=== PATIENT | female | born 1970 | race Caucasian/White ===

== ENCOUNTER 2016-12-29 21:26 | Emergency (ER) | payer MEDICAID ==
--- NOTE | 2016-12-29 22:04 | ED Physician Chart ---
Chief Complaint/HPI - Patient Information Date Seen:: 12/29/16 Time Seen:: 21:39 Chief Complaint:: headache History of Present Illness:: THIS IS A 46 YEAR OLD FEMALE WITH A RECURRENT HEADACHE IN THE BACK OF THE HEAD THAT STARTED THREE DAYS AGO. SHE DENIES ANY HEAD TRAUMA OLD OR RECENT. SHE DENIES FEVER, COUGH AND SORE THROAT. SHE DENIES NAUSEA AND VOMITING. SHE STATES THAT SHE HAS HYPERTENSION BUT NOT TAKING MEDICATION FOR IT. SHE ALSO STATES THAT SHE HAS THYROID DISEASE. Allergies:: Allergies Allergy/AdvReac Type Severity Reaction Status Date / Time No Known Allergies Allergy Verified 12/29/16 21:40 Vitals:: Vital Signs - 8 hr 12/29/16 21:30 Temp 97.7 F HR 68 RR 18 BP 115/74 O2 Sat % 100 Historian:: Patient Review:: Nurse's Note Reviewed Review of Systems - Review of Systems General/Constitutional: No fever, No chills, No weight loss, No weakness, No diaphoresis, No edema, No loss of appetite Skin: No skin lesions, No rash, No bruising Head: Headache, No light-headedness Eyes: No loss of vision, No pain, No diplopia, Other (PHOTOPHOBIA) ENT: No earache, No nasal drainage, No sore throat, No tinnitus Neck: No neck pain, No swelling, No thyromegaly, No stiffness, No mass noted Cardio Vascular: No chest pain, No palpitations, No PND, No orthopnea, No edema Pulmonary: No SOB, No cough, No sputum, No wheezing GI: No nausea, No vomiting, No diarrhea, No pain, No melena, No hematochezia, No constipation, No hematemesis G/U: No dysuria, No frequency, No hematuria Musculoskeletal: No bone or joint pain, No back pain, No muscle pain Endocrine: No polyuria, No polydipsia Psychiatric: No prior psych history, No depression, No anxiety, No suicidal ideation Hematopoietic: No bruising, No lymphadenopathy Allergic/Immuno: No urticaria, No angioedema Neurological: No syncope, No focal symptoms, No weakness, No paresthesia, No headache, No seizure, No dizziness, No confusion, No vertigo Past Medical History - Past Medical History Obtainable: Yes Past Medical History: HTN, Asthma/COPD, Thyroid disorder Family History: None Social History: Non Smoker, No Alcohol, No Drug Use Surgical History: None Family Medical History - Family Member Mother History Unknown: Yes Ethnicity: Living Status: Still Living Hx Family Cancer: Yes Hx Family Hypertension: Yes Hx Family Diabetes: Yes Physical Exam - Physical Examination General/Constitutional: Awake, Well-developed, well-nourished, Alert, No distress, GCS 15, Non-toxic appearing, Ambulatory Head: Atraumatic Eyes: Lids, conjuctiva normal, PERRL, EOMI Skin: Nl inspection, No rash, No skin lesions, No ecchymosis, Well hydrated, No lymphadenopathy ENMT: External ears, nose nl, Nasal exam nl, Lips, teeth, gums nl Neck: Nontender, Full ROM w/o pain, No JVD, No nuchal rigidity, No bruit, No mass, No stridor Respiratory: Nl effort/Exclusion, Clear to Auscultation, No Wheeze/Rhonchi/Rales Cardio Vascular: RRR, No murmur, gallop, rubs, NL S1 S2 GI: No tenderness/rebounding/guarding, No organomegaly, No hernia, Normal BS's, Nondistended, No mass/bruits, No McBurney tenderness : No CVA tenderness Extremities: No tenderness or effusion, Full ROM, normal strength in all extremities, No edema, Normal digits & nails Neuro/Psych: Alert/oriented, DTR's symmetric, Normal sensory exam, Normal motor strength, Judgement/insight normal, Mood normal, Normal gait, No focal deficits Misc: normal gait, Normal back, No paraspinal tenderness Labs/Radiology/EKG Results - Lab Results Results: Laboratory Results - last 24 hr 12/29/16 12/29/16 12/29/16 21:55 21:55 21:56 WBC RBC Hgb Hct MCV MCH MCHC Differential RDW Plt Count MPV Neutrophils % Lymphocytes % Monocytes % Eosinophils % Basophils % PT 9.3 L INR 0.90 Sodium Potassium Chloride Carbon Dioxide Anion Gap BUN Creatinine Est GFR ( Amer) Est GFR (Non-Af Amer) BUN/Creatinine Ratio Glucose Calcium Total Bilirubin AST ALT Alkaline Phosphatase Troponin I Total Protein Albumin Globulin Albumin/Globulin Ratio Triglycerides Cholesterol LDL Cholesterol Direct HDL Cholesterol Urine Source CLEAN C Urine Color YELLOW Urine Clarity CLEAR Urine pH 6.0 Ur Specific [place] 1.020 Urine Protein NEGATIVE Urine Glucose (UA) NEGATIVE Urine Ketones NEGATIVE Urine Blood TRACE Urine Nitrate NEGATIVE Urine Bilirubin NEGATIVE Urine Urobilinogen 0.2 Ur Leukocyte Esterase NEGATIVE Urine RBC NONE SEEN Urine WBC NONE SEEN Ur Epithelial Cells NONE SEEN Urine Bacteria NONE SEEN Urine Test NEGATIVE 12/29/16 12/29/16 12/29/16 21:56 21:56 21:56 WBC 7.9 D RBC 4.09 Hgb 11.7 Hct 34.3 L MCV 83.8 MCH 28.6 MCHC Differential 34.1 RDW 14.6 Plt Count 188 MPV 10.0 Neutrophils % 50.3 Lymphocytes % 36.2 Monocytes % 7.7 Eosinophils % 4.7 Basophils % 1.1 PT INR Sodium 137 Potassium 3.8 Chloride 110 H Carbon Dioxide 22.7 Anion Gap 8.1 BUN 13 Creatinine 0.7 Est GFR ( Amer) > 60.0 Est GFR (Non-Af Amer) > 60.0 BUN/Creatinine Ratio 18.6 Glucose 107 H Calcium 8.7 Total Bilirubin 0.2 L AST 15 ALT 14 Alkaline Phosphatase 53 Troponin I Total Protein 6.4 Albumin 3.4 L Globulin 3.0 Albumin/Globulin Ratio 1.1 Triglycerides 180 H Cholesterol 183 LDL Cholesterol Direct 118 HDL Cholesterol 48 Urine Source Urine Color Urine Clarity Urine pH Ur Specific [place] Urine Protein Urine Glucose (UA) Urine Ketones Urine Blood Urine Nitrate Urine Bilirubin Urine Urobilinogen Ur Leukocyte Esterase Urine RBC Urine WBC Ur Epithelial Cells Urine Bacteria Urine Test 12/29/16 21:56 WBC RBC Hgb Hct MCV MCH MCHC Differential RDW Plt Count MPV Neutrophils % Lymphocytes % Monocytes % Eosinophils % Basophils % PT INR Sodium Potassium Chloride Carbon Dioxide Anion Gap BUN Creatinine Est GFR ( Amer) Est GFR (Non-Af Amer) BUN/Creatinine Ratio Glucose Calcium Total Bilirubin AST ALT Alkaline Phosphatase Troponin I < 0.01 L Total Protein Albumin Globulin Albumin/Globulin Ratio Triglycerides Cholesterol LDL Cholesterol Direct HDL Cholesterol Urine Source Urine Color Urine Clarity Urine pH Ur Specific [place] Urine Protein Urine Glucose (UA) Urine Ketones Urine Blood Urine Nitrate Urine Bilirubin Urine Urobilinogen Ur Leukocyte Esterase Urine RBC Urine WBC Ur Epithelial Cells Urine Bacteria Urine Test - Radiology Results Results: ct scan of the head = sinus wall mucosal thicken. - EKG Interpretations EKG Time:: 22:19 Rhythm: sinus [place]: right Rate: 67 ED Septic Shock - . Is Septic Shock (SBP<90, OR Lactate>4 mmol\L) present?: No - <6hrs of presentation: Vital Signs: Vital Signs - 8 hr 12/29/16 21:30 Temp 97.7 F HR 68 RR 18 BP 115/74 O2 Sat % 100 Reassessment (Disposition) - Reassessment Reassessment Condition:: Improved - Diagnosis Diagnosis:: SINUSITIS HEADACHE - Aftercare/Follow up Instructions Aftercare/Follow-Up Instructions:: Counseled pt regarding lab results/diagnosis & need follow up, Refer to Discharge Instructions, Counseled pt & family regarding lab results/diagnosis & need follow up - Patient Disposition Discharge/Transfer:: Home Condition at Disposition:: Improved ED Discharge Plan - Patient Disposition Admit/Discharge/Transfer: PT DISCHARGED HOME Condition at Disposition: Improved
[2016-12-29 22:19] LABS: % BASOPHILS 1.1 % (0.0-2.0); % EOSINOPHILS 4.7 % (0.0-5.0); % LYMPHOCYTES 36.2 % (20.0-50.0); % MONOCYTES 7.7 % (2.0-10.0); % NEUTROPHILS 50.3 % (40.0-80.0); HEMATOCRIT 34.3 % (35.0-45.0); HEMOGLOBIN 11.7 gm/dL (11.7-15.5); MEAN CELL VOLUME 83.8 fl (81-100); MEAN CORPUSCULAR HEMOGLOBIN 28.6 pg (27.0-31.0); MEAN CORPUSCULAR HGB CONC 34.1 pg (28.0-36.0); NEUTROPHILE ABSOLUTE 3.9 Th/cmm (1.8-8.0); PLATELET COUNT 188 Th/cmm (150-400); RED BLOOD COUNT 4.09 Mil/cmm (3.80-5.10); RED CELL DISTRIBUTION WIDTH 14.6 % (11.5-20.0)
[2016-12-29 22:24] LABS: WHITE BLOOD COUNT 7.9 Th/cmm (4.8-10.8)
[2016-12-29 22:31] LABS: INR 0.9 (0.5-1.4); PROTHROMBIN TIME (TEST) 9.3 SECONDS (9.5-11.5)
[2016-12-29 22:32] LABS: URINE BILIRUBIN NEGATIVE (NEGATIVE); URINE COLOR YELLOW; URINE GLUCOSE (UA) NEGATIVE (NEGATIVE)
[2016-12-29 22:33] LABS: URINE BLOOD TRACE (NEGATIVE); URINE KETONE NEGATIVE (NEGATIVE); URINE PROTEIN NEGATIVE (NEGATIVE); URINE UROBILINOGEN 0.2 E.U./dL (0.2 - 1.0)
[2016-12-29 22:33] LABS: ANION GAP 8.1 (7.0-16.0); BUN - UREA NITROGEN 13 mg/dL (7-25); BUN/CREATININE RATIO 18.6; CARBON DIOXIDE 22.7 mEq/L (21.0-31.0); CHLORIDE 110 mEq/L (98-107); CREATININE - SERUM 0.7 mg/dL (0.6-1.2); GLUCOSE 107 mg/dL (70-105); POTASSIUM SERUM 3.8 mEq/L (3.5-5.1); SODIUM SERUM 137 mEq/L (136-145)
[2016-12-29 22:34] LABS: URINE BACTERIA NONE SEEN /hpf (NONE SEEN); URINE EPITHELIAL CELLS NONE SEEN /lpf (FEW); URINE RBC NONE SEEN /hpf (0-5); URINE WBC NONE SEEN /hpf (0-5)
[2016-12-29 22:34] LABS: ALB/GLOB RATIO 1.1 (1.0-1.8); ALKALINE PHOSPHATASE 53 U/L (34-104); BILIRUBIN,TOTAL 0.2 mg/dL (0.3-1.0); CALCIUM SERUM 8.7 mg/dL (8.6-10.3); CHOLESTEROL 183 mg/dL (<200); SGOT 15 U/L (13-39); SGPT/ALT 14 U/L (7-52); TRIGLYCERIDES 180 mg/dL (<150)
--- NOTE | 2016-12-30 11:23 | Diagnostic Imaging Report ---
Head CT without intravenous contrast Indication: pain Comparison: None Technique: Axial images were obtained from the vertex to the skull base without IV contrast. Coronal reconstructions were made. Total DLP: 588, [id number] FINDINGS: Images of the brain obtained without contrast demonstrate no evidence of an acute hemorrhage. The ventricles and basal cisterns are patent. No mass effect or midline shift. There is a 3 mm calcification the right occipital lobe possibly due to old inflammatory process. No evidence of a skull fracture or focal soft tissue swelling. The visualized paranasal sinuses are clear. IMPRESSION: No acute intracranial abnormality.
== END 2016-12-29 23:30 | disposition home or self-care (01) ==
LOC: ER 21:26
DX: J32.9 Chronic sinusitis, unspecified (principal); R51 Headache; I10 Essential (primary) hypertension; J44.9 Chronic obstructive pulmonary disease, unspecified; J45.909 Unspecified asthma, uncomplicated; E07.9 Disorder of thyroid, unspecified
CPT/HCPCS: 99285; 96372 ×3; 93005; 70450; 84484; 36415; 84443; 85025; 85610; 81001; 81025; 80053; 80061; 87040 ×2; J1885; J0696; J2930; J2060

== ENCOUNTER 2017-02-25 08:49 | Inpatient (IN) | payer MEDICAID ==
[2017-02-25] MEDS ORDERED: Aspirin 81mg Chewable Tab PO STA (09:01)
[2017-02-25] MEDS ORDERED: Aspirin 81mg Chewable Tab ONE (09:02)
--- NOTE | 2017-02-25 09:07 | ED Physician Chart ---
Chief Complaint/HPI - Patient Information Date Seen:: 02/25/17 Time Seen:: 09:02 Chief Complaint:: cp History of Present Illness:: 1 week of on/off chest pain w left arm/leg numbness. mod pain now. no meds taken/tried today. central left chest pain which comes and goes. feels sob and has to rest now before climbing stairs (diaz+) no leg edema. no n/v. nonsmoker. pt has been untreated for her chronic med conditions of hypothyroid, high chol and dm for the past year since no pmd at present. she thinks she may have had a heart attack about 5 yrs ago there was a episode where she was syncopal ...then refused ems transport to hospital when she awoke so no def dx of mi was made...unclear by hx but sounds like only a vasovagal syncope. pt mentions weight loss 10 lbs in last yr unintentionally. Allergies:: Allergies Allergy/AdvReac Type Severity Reaction Status Date / Time No Known Allergies Allergy Verified 12/29/16 21:40 Historian:: Patient, Family Member (dtr) Review of Systems - Review of Systems General/Constitutional: No fever, No chills, No weight loss, No weakness, No diaphoresis, No edema, No loss of appetite Skin: No skin lesions, No rash, No bruising Head: No headache, No light-headedness Eyes: No loss of vision, No pain, No diplopia ENT: No earache, No nasal drainage, No sore throat, No tinnitus Neck: No neck pain, No swelling, No thyromegaly, No stiffness, No mass noted Cardio Vascular: Chest pain, No palpitations, No PND, No orthopnea, No edema Pulmonary: No SOB, No cough, No sputum, No wheezing GI: No nausea, No vomiting, No diarrhea, No pain, No melena, No hematochezia, No constipation, No hematemesis G/U: No dysuria, No frequency, No hematuria Musculoskeletal: No bone or joint pain, No back pain, No muscle pain Endocrine: No polyuria, No polydipsia Psychiatric: No prior psych history, No depression, No anxiety, No suicidal ideation Hematopoietic: No bruising, No lymphadenopathy Allergic/Immuno: No urticaria, No angioedema Neurological: No syncope, No focal symptoms, No weakness, No paresthesia, No headache, No seizure, No dizziness, No confusion, No vertigo Past Medical History - Past Medical History Past Medical History: DM, Dyslipidemia, Thyroid disorder Social History: Non Smoker Medication: None Family Medical History - Family Member Mother History Unknown: Yes Ethnicity: Living Status: Still Living Hx Family Cancer: Yes Hx Family Hypertension: Yes Hx Family Diabetes: Yes Physical Exam - Physical Examination General/Constitutional: Awake, Well-developed, well-nourished, Alert, No distress, GCS 15, Non-toxic appearing, Ambulatory Other Gen/Cons comments:: mod obese. anxious. no dyspnea. no edema. Head: Atraumatic Eyes: Lids, conjuctiva normal, PERRL, EOMI Skin: Nl inspection, No rash, No skin lesions, No ecchymosis, Well hydrated, No lymphadenopathy Other Skin comments:: mult skin tags around neck ENMT: External ears, nose nl, Nasal exam nl, Lips, teeth, gums nl Neck: Nontender, Full ROM w/o pain, No JVD, No nuchal rigidity, No bruit, No mass, No stridor Other Neck comments:: mod thyromegally Respiratory: Nl effort/Exclusion, Clear to Auscultation, No Wheeze/Rhonchi/Rales Cardio Vascular: RRR, No murmur, gallop, rubs, NL S1 S2 GI: No tenderness/rebounding/guarding, No organomegaly, No hernia, Normal BS's, Nondistended, No mass/bruits, No McBurney tenderness : No CVA tenderness Extremities: No tenderness or effusion, Full ROM, normal strength in all extremities, No edema, Normal digits & nails Other Extremities comments:: no leg tndrness. no waldemar sx. Neuro/Psych: Alert/oriented, DTR's symmetric, Normal sensory exam, Normal motor strength, Judgement/insight normal, Mood normal, Normal gait, No focal deficits Misc: normal gait, Normal back, No paraspinal tenderness Labs/Radiology/EKG Results - Lab Results Results: Laboratory Tests 02/25/17 02/25/17 02/25/17 09:19 09:19 09:19 WBC 7.1 RBC 4.07 Hgb 11.3 L Hct 33.8 L MCV 83.1 MCH 27.8 MCHC Differential 33.4 RDW 15.6 Plt Count 192 MPV 9.8 Neutrophils % 52.2 Lymphocytes % 39.7 Monocytes % 5.4 Eosinophils % 2.7 Basophils % 0.0 PT 9.9 INR 0.95 Sodium Potassium Chloride Carbon Dioxide Anion Gap BUN Creatinine Est GFR ( Amer) Est GFR (Non-Af Amer) BUN/Creatinine Ratio Glucose Calcium Total Bilirubin AST ALT Alkaline Phosphatase Creatine Kinase 205 Troponin I B-Natriuretic Peptide Total Protein Albumin Globulin Albumin/Globulin Ratio Triglycerides 98 Cholesterol 226 H LDL Cholesterol Direct 144 HDL Cholesterol 60 Serum , Qual 02/25/17 02/25/17 02/25/17 09:19 09:19 09:19 WBC RBC Hgb Hct MCV MCH MCHC Differential RDW Plt Count MPV Neutrophils % Lymphocytes % Monocytes % Eosinophils % Basophils % PT INR Sodium 138 Potassium 3.5 Chloride 109 H Carbon Dioxide 25.7 Anion Gap 6.8 L BUN 8 Creatinine 0.7 Est GFR ( Amer) > 60.0 Est GFR (Non-Af Amer) > 60.0 BUN/Creatinine Ratio 11.4 Glucose 84 Calcium 9.0 Total Bilirubin 0.3 AST 16 ALT 12 Alkaline Phosphatase 48 Creatine Kinase Troponin I < 0.01 L B-Natriuretic Peptide 7.1 Total Protein 6.6 Albumin 3.7 Globulin 2.9 Albumin/Globulin Ratio 1.3 Triglycerides Cholesterol LDL Cholesterol Direct HDL Cholesterol Serum , Qual NEGATIVE - Radiology Results Results: cxr nad, rt med base ? infiltrate - EKG Interpretations EKG Time:: 08:50 Rate & Rhythm: nsr 73 [place]: 19 Intervals: [id number] Comments:: nrml ecg..no ischemia ED Septic Shock - . Is Septic Shock (SBP<90, OR Lactate>4 mmol\L) present?: No Reassessment (Disposition) - Reassessment Reassessment:: 9;25a pt says pain has decreased to mild after asa and ntg case dw dr billings...will admit 10;29a Reassessment Condition:: Improved - Diagnosis Diagnosis:: 1 chest pain - r/o unstable angina 2 rt base lung infiltrate of uncertain etiology 3 untreated hypothyroid 4 untreated high cholesterol - Patient Disposition Admitted to:: Telemetry Condition at Disposition:: Improved
[2017-02-25 09:31] LABS: % EOSINOPHILS 2.7 % (0.0-5.0); % LYMPHOCYTES 39.7 % (20.0-50.0); % MONOCYTES 5.4 % (2.0-10.0); % NEUTROPHILS 52.2 % (40.0-80.0); HEMATOCRIT 33.8 % (35.0-45.0); HEMOGLOBIN 11.3 gm/dL (11.7-15.5); MEAN CELL VOLUME 83.1 fl (81-100); MEAN CORPUSCULAR HEMOGLOBIN 27.8 pg (27.0-31.0); MEAN CORPUSCULAR HGB CONC 33.4 pg (28.0-36.0); MEAN PLATELET VOLUME 9.8 fl; NEUTROPHILE ABSOLUTE 3.7 Th/cmm (1.8-8.0); PLATELET COUNT 192 Th/cmm (150-400); RED BLOOD COUNT 4.07 Mil/cmm (3.80-5.10); RED CELL DISTRIBUTION WIDTH 15.6 % (11.5-20.0); WHITE BLOOD COUNT 7.1 Th/cmm (4.8-10.8)
[2017-02-25 09:39] LABS: INR 0.95 (0.5-1.4); PROTHROMBIN TIME (TEST) 9.9 SECONDS (9.5-11.5)
[2017-02-25 09:48] LABS: TROP I < 0.01 ng/mL (0.01-0.05)
[2017-02-25 09:51] LABS: ALB/GLOB RATIO 1.3 (1.0-1.8); ALKALINE PHOSPHATASE 48 U/L (34-104); ANION GAP 6.8 (7.0-16.0); BILIRUBIN,TOTAL 0.3 mg/dL (0.3-1.0); BUN - UREA NITROGEN 8 mg/dL (7-25); BUN/CREATININE RATIO 11.4; CARBON DIOXIDE 25.7 mEq/L (21.0-31.0); CHLORIDE 109 mEq/L (98-107); CREATININE - SERUM 0.7 mg/dL (0.6-1.2); GLUCOSE 84 mg/dL (70-105); POTASSIUM SERUM 3.5 mEq/L (3.5-5.1); SGOT 16 U/L (13-39); SGPT/ALT 12 U/L (7-52); SODIUM SERUM 138 mEq/L (136-145)
[2017-02-25 09:52] LABS: CHOLESTEROL 226 mg/dL (<200); TRIGLYCERIDES 98 mg/dL (<150)
[2017-02-25 09:53] LABS: BNP 7.1 pg/mL (5.0-100.0)
--- NOTE | 2017-02-25 10:07 | Diagnostic Imaging Report ---
CHEST X-RAY: AP view INDICATION: Chest pain COMPARISON: Chest x-ray 10/25/2016 FINDINGS: Right medial basal density is noted possibly infiltrate. No pleural effusions. Heart size normal. Osseous structures are intact. IMPRESSION: Right medial basal density possibly representing infiltrate. Other etiologies such as pulmonary nodule cannot be excluded. Recommend follow-up with CT of the chest, preferably with IV contrast.
--- NOTE | 2017-02-25 11:08 | Admit Criteria Form ---
Admit Criteria Forms - Admit Criteria Diagnosis: TELEMETRY CARE Telemetry Admission Guidelines (Place 'X' for any and all applicable criteria): Admission to telemetry [A] may be indicated for ANY ONE of the following(1)(2)(3 )(4)(5): [X ]I. Cardiac disease, including ANY ONE of the following (9)(10)(11)(12)( 13): [ ]a) Postacute NE [ ]b) Low-risk patients with ST-segment elevation NE who have undergone successful percutaneous coronary intervention [X ]c) Unstable angina [ ]d) Suspected NE (until it is ruled out) [ ]e) Post cardiac surgery (first 48 to 72 hours unless complications occur) [ ]f) Acute arrhythmias (including significant tachycardia or bradycardia) [B] [ ]g) Firing of an implantable cardioverter defibrillator [C] [ ]h) Suspected pacemaker or implantable cardioverter defibrillator malfunction (10) [ ]i) New administration or adjustment of an antiarrhythmic drug [D ] [ ]j) Child admitted for acute congestive heart failure [ ]j) Long QT syndrome [ ]k) Advanced heart block (eg, second-degree Mobitz type II, third- degree heart block) [ ]l) Acute myocarditis or pericarditis [ ]m) Short-term (ambulatory or inpatient) monitoring after a cardiac procedure as indicated by ANY ONE of the following [E]: [ ]i) Electrophysiologic studies [ ]ii) Percutaneous coronary intervention with stent placement [ ]iii) Pacemaker placement with cardiac conduction defect [ ]iv) Implantable cardiac defibrillator placement [ ]II. Drug overdose or poisoning with substance that causes arrhythmias or QT prolongation (eg, phenothiazines, sympathomimetic agents, cyclic antidepressants, digitalis, antiarrhythmic drugs)(15) [ ]III. Short-term (ambulatory or inpatient) monitoring after therapeutic or diagnostic procedure requiring conscious sedation or anesthesia (eg, endoscopy, elective cardioversion) [ ]IV. Acute cerebrovascular even[F](18) [ ]V. Massive blood transfusion (eg, at least 10 units of packed red blood cells in 24 hours) [ ]. Variceal bleeding after endoscopy, sclerotherapy, or IV vasopressin [ ]VII. Uncorrected electrolyte abnormalities associated with an increased risk of dangerous arrhythmia [G]; examples include [ ]a) Hyperkalemia with attributable ECG changes [ ]b) Potassium greater than 6.5 mmol/L (mEq/L) in a patient without history of chronic renal disease [ ]c) Prolonged QT attributed to hypokalemia, hypomagnesemia, or hypocalcemia [ ]VIII.Unexplained syncope or other neurologic event suspected of being due to arrhythmia due to a finding that increases risk; examples include(19)(20)(21): [ ]a) High-risk ECG findings (eg, bifascicular block, bradycardia, abnormal QT interval, ventricular pre- excitation) [ ]b) History of previous syncope due to arrhythmia [ ]c) Abnormal ventricular function (eg, reduced ejection fraction ) [ ]d) Exertional or supine syncope [ ]e) Concerning syncope characteristics (eg, sudden loss of consciousness without prodrome) [ ]f) Family history of sudden [ ]g) Use of arrhythmogenic medication [ ]h) Suspected cardiac ischemia [ ]i) Known channelopathy (eg, long QT syndrome, Brugada syndrome, or catecholaminergic paroxysmal ventricular tachycardia) [ ]j) Known structural heart disease (eg, hypertrophic cardiomyopathy , severe valvular disease) [ ]k) Palpitations preceding syncope The original [employer] content created by [employer] has been revised. The portions of the content which have been revised are identified through the use of italic text or in bold, and [employer] [employer] has neither reviewed nor approved the modified material. All other unmodified content is copyright [employer]. Please see references footnoted in the original [employer] edition 2016 Admit Criteria Met?: Yes
[2017-02-25 11:34] LABS: URINE BILIRUBIN NEGATIVE (NEGATIVE); URINE BLOOD NEGATIVE (NEGATIVE); URINE COLOR YELLOW; URINE GLUCOSE (UA) NEGATIVE (NEGATIVE); URINE KETONE NEGATIVE (NEGATIVE); URINE PH 7.5; URINE PROTEIN NEGATIVE (NEGATIVE); URINE UROBILINOGEN 0.2 E.U./dL (0.2 - 1.0)
[2017-02-25 11:36] LABS: URINE BACTERIA NONE SEEN /hpf (NONE SEEN); URINE EPITHELIAL CELLS RARE /lpf (FEW); URINE RBC NONE SEEN /hpf (0-5); URINE WBC NONE SEEN /hpf (0-5)
[2017-02-25] MEDS: Albuterol/Ipratropium Neb 3 ML AERS HHN SCH ×3 (11:36→19:11)
[2017-02-25] MEDS: cefTRIAXone 1 GM in Sodium Chloride 0.9% 50 ML IV SCH (12:19)
[2017-02-25] MEDS: Azithromycin 500 MG in Sodium Chloride 0.9% 250 ML IV SCH (12:22)
[2017-02-26] MEDS ORDERED: Potassium Chloride 20 mEq ER Tab PO ONE ×2 (02:00→14:57)
--- NOTE | 2017-02-26 03:07 | Cardiology ---
02/25/[address] Wagner. M-MODE ECHOCARDIOGRAM: Mitral valve, anterior leaflet of mitral valve shows normal excursion, EF velocity. Posterior leaflet of mitral valve shows normal excursion. Left ventricular posterior wall shows increased thickness, normal excursion. Interventricular septum shows increased thickness, normal excursion, hypertrophy of the left ventricle, ejection fraction 55%. Left atrium normal. Aortic root shows normal dimension, normal excursion of aortic leaflets. CONCLUSION: Hypertrophy of the left ventricle, ejection fraction 50%. 2D ECHOCARDIOGRAM: Long axis view showed normal sized left ventricle with hypertrophy of the left ventricle. Left atrium normal. Aortic root shows normal dimension, normal excursion of aortic leaflets. Short axis view of mitral valve normal, short axis view aortic valve normal. Apical four chamber view showed normal sized left ventricle, left atrium, right ventricle, right atrium, tricuspid, mitral valve, ejection fraction 55%. CONCLUSION: Hypertrophy of the left ventricle, ejection fraction 55%. Doppler study shows mild mitral regurgitation, mild tricuspid regurgitation, prominent A wave consistent with poor compliance of left ventricle. CONCLUSION: Hypertrophy of the left ventricle, ejection fraction 55%. Mild mitral regurgitation and tricuspid regurgitation. [facility]# [id number]
[2017-02-26] MEDS: Levothyroxine 0.112 Mg Tab PO SCH (06:46)
[2017-02-26] MEDS: Albuterol/Ipratropium Neb 3 ML AERS HHN SCH ×4 (07:03→19:03)
[2017-02-26] MEDS: Aspirin 81mg Chewable Tab PO SCH (08:31)
[2017-02-26] MEDS: Atorvastatin Calcium 10 MG TAB PO SCH (08:31)
[2017-02-26 08:48] LABS: % BASOPHILS 0.9 % (0.0-2.0); % EOSINOPHILS 2.7 % (0.0-5.0); % MONOCYTES 4.7 % (2.0-10.0); % NEUTROPHILS 50.7 % (40.0-80.0); HEMATOCRIT 34.6 % (35.0-45.0); HEMOGLOBIN 11.6 gm/dL (11.7-15.5); MEAN CELL VOLUME 82.8 fl (81-100); MEAN CORPUSCULAR HEMOGLOBIN 27.8 pg (27.0-31.0); MEAN CORPUSCULAR HGB CONC 33.5 pg (28.0-36.0); MEAN PLATELET VOLUME 9.5 fl; PLATELET COUNT 198 Th/cmm (150-400); RED BLOOD COUNT 4.18 Mil/cmm (3.80-5.10); RED CELL DISTRIBUTION WIDTH 15.8 % (11.5-20.0); WHITE BLOOD COUNT 6.1 Th/cmm (4.8-10.8)
--- NOTE | 2017-02-26 09:03 | Diagnostic Imaging Report ---
Portable chest x-ray History: Cough Allowing for portable technique the heart size is normal. No focal pulmonary parenchymal processes. Slight eventration of the right hemidiaphragm. No hilar or mediastinal abnormalities. Impression: No acute abnormalities.
[2017-02-26 09:10] LABS: ALB/GLOB RATIO 1.3 (1.0-1.8); ALKALINE PHOSPHATASE 44 U/L (34-104); ANION GAP 6.2 (7.0-16.0); BILIRUBIN,TOTAL 0.3 mg/dL (0.3-1.0); BUN - UREA NITROGEN 10 mg/dL (7-25); BUN/CREATININE RATIO 14.3; CALCIUM SERUM 9.2 mg/dL (8.6-10.3); CARBON DIOXIDE 22.8 mEq/L (21.0-31.0); CHLORIDE 110 mEq/L (98-107); CREATININE - SERUM 0.7 mg/dL (0.6-1.2); GLUCOSE 155 mg/dL (70-105); MAGNESIUM 2.3 mg/dL (1.9-2.7); SGOT 14 U/L (13-39); SGPT/ALT 12 U/L (7-52); SODIUM SERUM 136 mEq/L (136-145)
[2017-02-26] MEDS ORDERED: IOHEXOL 300MG/ML 100 ML VIAL PO ONE (11:09)
[2017-02-26] MEDS: Azithromycin 500 MG in Sodium Chloride 0.9% 250 ML IV SCH (11:48)
[2017-02-26] MEDS: cefTRIAXone 1 GM in Sodium Chloride 0.9% 50 ML IV SCH (13:27)
--- NOTE | 2017-02-26 13:50 | Diagnostic Imaging Report ---
CT scan of the chest with intravenous contrast HISTORY: Mass. Total DLP equals 365 CTDI equals 9.7 Following administration of intravenous contrast, axial sections were obtained from a level above the clavicles down to level below the diaphragm. The heart size is normal. No abnormal mediastinal masses are seen. No abnormal hilar masses. Subpleural cystic changes noted in the right the lesser degree left lower hemithoracic regions. Accentuation of the lower interstitial lung markings. Findings consistent with chronic change. The linear density is seen in the basilar region of the right middle lobe. Findings consistent with scarring or subsegmental atelectasis. No free pleural fluid. IMPRESSION: 1. Subpleural cystic changes within the right left lower hemithoracic regions along with accentuation of the lower interstitial lung markings. Findings consistent with a chronic etiology. 2. Linear density right middle lobe consistent with scarring or subsegmental atelectasis.
--- NOTE | 2017-02-26 14:56 | History & Physical ---
ADMIT DATE: 02/25/2017 CHIEF COMPLAINT: Chest pain that started about a week ago. HISTORY OF PRESENT ILLNESS: This is a 46-year-old lady with history of hypertension, mild diabetes, hyperlipidemia, asthma, previous pneumonia who was in her usual state of health until about a week ago when she started having on and off chest pain with left arm and left leg numbness. The patient states that the pain is pressure like and radiated to the back, little bit to the back and again to the left shoulder. It is not associated with nausea, vomiting or diaphoresis, but she does claim to have some shortness of breath, especially upon walking or climbing stairs. She denies any previous similar episodes. She denies any history of CAD. She does admit to significant stress secondary to her son getting lost in [place] and apparently been admitted to a psychiatric hospital and since then has been really stressed and a week after her son was lost, she started complaining of these symptoms. Again, she denies any previous similar episodes, although a few years ago, she states that she passed out briefly and was found to have hypertension out of control, but did not go to the hospital. As of late, she has been taken off her medications because of her symptoms getting improved per patient's account and somewhat of noncompliance issues. PAST MEDICAL HISTORY: As noted above. She also has hypothyroidism. PAST SURGICAL HISTORY: None. FAMILY HISTORY: There is a history in her mom of diabetes and CHF and her father prostate CA. There is also family history of breast cancer on both her mom and her sister. SOCIAL HISTORY: No tobacco, no ETOH or illicit drug usage. She lives at home with family. ALLERGIES: No known drug allergies. OUTPATIENT MEDICATIONS: Currently only taking ProAir MDI, previously on antihypertensive, statins and diabetic medications. REVIEW OF SYSTEMS: CONSTITUTIONAL: She states that she has had some weight loss over the last couple of weeks, some weakness and tiredness. CARDIAC: Please refer to HPI. PULMONARY: No cough or phlegm production. GASTROINTESTINAL: No bowel habit changes. GENITOURINARY: No bladder habit changes. NEUROLOGIC: No changes in vision. She, as mentioned in the HPI, she is complaining of little bit of also left lower extremity numbness, no syncope. No headaches. PHYSICAL EXAMINATION: VITAL SIGNS: Temperature 98.3, pulse 61-74, respirations 18-20, BP 104/66, satting 98-100% on 2 liters. GENERAL: Well-developed, mildly obese female, not in acute distress. HEAD AND NECK: Normocephalic, atraumatic. Pupils are reactive to light. Extraocular movements are intact. Oropharynx moist and clear. CARDIOVASCULAR: Regular rate and rhythm. CHEST WALL: There is some reproducible chest pain upon deep palpation on the left sternal border consistent with her recent previous pain. LUNGS: Clear to auscultation bilaterally. ABDOMEN: Soft, supple, nontender, nondistended, normoactive bowel sounds. EXTREMITIES: No edema in lower extremities. NEUROLOGIC: Grossly intact. LABORATORY DATA: On admission, CBC showed H and of 11/33, otherwise within normal limits. Chemistry was essentially within normal limits. Troponins have been negative x 3 sets. Cholesterol 226, LDL of 144, HDL 60. TSH 46.10 with a free T4 of 3.41. BNP 7.1. UA was essentially within normal limits. The first x-ray done on admission, there were no acute abnormalities. There is another chest x-ray showing right medial basilar density probably represent an infiltrate. Other etiology such as pulmonary nodule cannot be excluded. Recommend followup CT of the chest with IV contrast. IMPRESSION AND PLAN: Chest pain, likely noncardiac. Given her physical findings, this is likely atypical chest pain secondary to stress. Nevertheless, the patient was admitted to rule out ACS with her troponins being negative. I have asked for a 2D echo to be done as well as a Cardiology eval. The patient has been placed on statin and aspirin. As far as her diabetes is concern, it looks to be well controlled, so she will just be kept on ADA 1800 diet. Given her history of hypothyroidism and current findings, I will resume her previous medication of Synthroid at 112 mcg every day. She clinically is asymptomatic pulmonary greer, but I will ask for a CT scan of the chest to be done with IV contrast as recommended and given her anxiety and depression, the patient will be placed on antidepressant and anti-anxiolytic and she will also be seen by Psychiatry. JOB# [id number]
--- NOTE | 2017-02-27 03:52 | Consultation ---
DATE OF CONSULTATION: 02/26/2017 IDENTIFYING INFORMATION: The patient is a 46-year-old female. REASON FOR CONSULTATION AND HISTORY OF PRESENT ILLNESS: This patient who was admitted with chest pain. The patient admits to feeling depressed. She reports she sleep well, eats well. She denies any current intent to harm herself or anybody. She denies any current auditory or visual hallucination or paranoia. She denies any current substance abuse, but she reports she is feeling a little bit depressed. When I asked about ____, she denies any substance abuse. PAST PSYCHIATRIC HISTORY: The patient denies prior psychiatric treatment. She is not on any psychotropic. MEDICAL HISTORY: Deferred to the medical doctor. The patient did have an EKG and an echo and troponin____ because of her chest pain. FAMILY AND SOCIAL HISTORY: She is . She has four children. She does work. She have high school education. She denies any substance abuse or family psychotic disorder or any legal problem. MENTAL STATUS EXAMINATION: The patient is appropriately dressed and groomed, spoke broken Chilean. She was oriented x 4, no suicidal ideation, no homicidal ideation. She has full range of affect, no auditory or visual hallucination or paranoia. Her insight and judgment is fair. Her memory is fair. IMPRESSION: AXIS I: Major depression, moderate, single episode. MEDICAL DIAGNOSES: Deferred to medical doctor, ____ to add Lexapro 5 mg daily, needs follow up with the psychiatrist upon discharge. Thank you very much for allowing me to participate in the care of this most interesting lady. [facility]# [id number]
[2017-02-27 05:56] LABS: % BASOPHILS 0.3 % (0.0-2.0); % EOSINOPHILS 3.8 % (0.0-5.0); % MONOCYTES 6.6 % (2.0-10.0); % NEUTROPHILS 54.3 % (40.0-80.0); HEMATOCRIT 34.3 % (35.0-45.0); HEMOGLOBIN 11.6 gm/dL (11.7-15.5); MEAN CELL VOLUME 83.6 fl (81-100); MEAN CORPUSCULAR HEMOGLOBIN 28.2 pg (27.0-31.0); MEAN CORPUSCULAR HGB CONC 33.7 pg (28.0-36.0); MEAN PLATELET VOLUME 10.4 fl; NEUTROPHILE ABSOLUTE 3.6 Th/cmm (1.8-8.0); PLATELET COUNT 194 Th/cmm (150-400); RED CELL DISTRIBUTION WIDTH 16.3 % (11.5-20.0); WHITE BLOOD COUNT 6.5 Th/cmm (4.8-10.8)
[2017-02-27 06:33] LABS: ANION GAP 9.7 (7.0-16.0); BUN - UREA NITROGEN 10 mg/dL (7-25); BUN/CREATININE RATIO 14.3; CARBON DIOXIDE 23.5 mEq/L (21.0-31.0); CHLORIDE 109 mEq/L (98-107); CREATININE - SERUM 0.7 mg/dL (0.6-1.2); GLUCOSE 82 mg/dL (70-105); MAGNESIUM 2.2 mg/dL (1.9-2.7); POTASSIUM SERUM 4.2 mEq/L (3.5-5.1); SODIUM SERUM 138 mEq/L (136-145)
[2017-02-27] MEDS: Levothyroxine 0.112 Mg Tab PO SCH (06:33)
[2017-02-27] MEDS: Albuterol/Ipratropium Neb 3 ML AERS HHN SCH (06:54)
[2017-02-27] MEDS: Atorvastatin Calcium 10 MG TAB PO SCH (08:19)
[2017-02-27] MEDS: Aspirin 81mg Chewable Tab PO SCH (08:19)
[2017-02-27] MEDS ORDERED: Potassium Chloride 20 mEq ER Tab PO SCH (14:45)
--- NOTE | 2017-02-27 22:20 | Discharge Summary ---
DATE OF DISCHARGE: 02/27/2017 ADMITTING DIAGNOSES: 1. Chest pain, rule out acute coronary syndrome. 2. Anxiety. 3. Right medial basilar density. SECONDARY DIAGNOSES: Include, 1. Hypertension. 2. Diabetes. 3. Hyperlipidemia. 4. Asthma. 5. History of previous pneumonia. 6. Hypothyroidism. DISCHARGE DIAGNOSES: 1. Chest pain, likely secondary to stress and anxiety/musculoskeletal. 2. Right lower lobe chronic atelectasis/chronic changes recently. CONSULTANTS: Dr. Reyna, Cardiology and Dr. Vasquez, Psychiatry. MAJOR PROCEDURES: Included a chest CT showing subpleural cystic changes within the right and left lower chronic changes along with accentuation of the lower interstitial lung markings. Findings are consistent with chronic etiology. Linear density right middle lobe consistent with scarring or atelectasis. A 2D echo shows hypertrophy of the left ventricle with an ejection fraction of 55%. Doppler study shows mild mitral regurgitation and mild tricuspid regurgitation, permanent A wave consistent with poor compliance of left ventricle. BRIEF HOSPITAL COURSE: A 46-year-old lady with history of hypertension, mild diabetes, hyperlipidemia, asthma, not on any medications, who presented to the ER with 1-week history of worsening substernal chest pain with radiation to the left shoulder. The patient did not have any other angina associated symptomatology. She did relate stress and anxiety secondary to personnel issue with her son. She was nevertheless admitted to rule out ACS. A chest x-ray did show right medial basilar density, and therefore, a CT of the chest was done which was mentioned above. She ruled out with cardiac enzymes and EKGs and underwent a 2D echo. She was seen by Cardiology and by Psychiatry. She was placed on aspirin and NSAIDs for the chest pain and was also resumed on her previous medications, which again she was not taking when she was admitted. These medications including Lipitor, aspirin, and levothyroxine. She was also placed empirically on IV antibiotics given her x-ray findings. She has remained asymptomatic since admission. CONDITION ON DISCHARGE: Stable. DISPOSITION: The patient will be discharged home to self-care and was advised to follow up with her primary care doctor within 2-3 days. JOB# [id number] GABY
--- NOTE | 2017-02-28 01:49 | Progress Notes ---
DATE: 02/27/2017 Case was discussed with staff of the patient. The patient is doing much better. She is in the process of getting discharge. I advised the patient need to follow up with the psychiatrist upon discharge. I did recommend that she also take some Lexapro and the patient denies any intent to harm herself or anyone. No suicidal ideation or homicidal ideation. No paranoia. No auditory or visual hallucinations, sleeping well, eating well. Thank you very much for allowing me to participate in the care of this most interesting lady. JOB# [id number]
--- NOTE | 2017-02-28 02:48 | Consultation ---
DATE OF CONSULTATION: 02/25/[address] Wagner. HISTORY AND PHYSICAL: This 46 years old female patient who has been complaining of pain in the chest radiating to left shoulder and to the back. Following this, the patient came to the Emergency Room and the patient is admitted for coronary artery disease. PAST MEDICAL HISTORY: Hypertension, hypothyroid, hyperlipidemia, diabetes mellitus type 2. FAMILY HISTORY: The patient's mother has diabetes and congestive heart failure. Father has prostate cancer. SOCIAL HISTORY: No history of smoking, alcohol abuse. ALLERGIES: None. PHYSICAL EXAMINATION: VITAL SIGNS: Blood pressure 130/80, pulse 70, respirations 20. HEAD: Normocephalic. No lumps or bumps. EYES: Pupils equal, reactive to light. Fundi show AV nicking, sclerae white, conjunctivae pink. NECK: Carotid 2+. Normal upstroke. JVD flat. Thyroid not palpable. Lymph nodes not palpable. CHEST: Shows increased AP diameter. No kyphosis or scoliosis. LUNGS: Bilateral bronchovesicular breath sounds. HEART: PMI, fifth intercostal space with lateral to midclavicular line. S1, S2. No S3, S4. Systolic murmur, grade 2/6, lower left sternal border without radiation. ABDOMEN: Soft. Liver, spleen not palpable. No organomegaly. Bowel sounds active. NEUROLOGIC: Unremarkable. EXTREMITIES: Peripheral pulses 2+. No pedal edema. CLINICAL IMPRESSION: Chest pain, unlikely coronary artery disease, hypothyroid, hyperlipidemia, hypertension, diabetes mellitus type 2. PLAN: We will admit the patient. We will get troponin level, EKG, echocardiogram and monitor the patient on telemetry bed. JOB# [id number]
[2017-02-28] MEDS ORDERED: Escitalopram Oxalate 5 mg Tab PO SCH (09:00)
== END 2017-02-27 11:10 | disposition home or self-care (01) | DRG 203 ==
LOC: ER 08:49 → TELE 10:49
PROVIDERS: ADMIT Internal Medicine; ATTEND Internal Medicine
DX: R07.89 Other chest pain (principal); F33.1 Major depressive disorder, recurrent, moderate; F41.9 Anxiety disorder, unspecified; E11.9 Type 2 diabetes mellitus without complications; E03.9 Hypothyroidism, unspecified; E78.5 Hyperlipidemia, unspecified; J44.9 Chronic obstructive pulmonary disease, unspecified; J45.909 Unspecified asthma, uncomplicated; Z83.3 Family history of diabetes mellitus; Z82.49 Family history of ischemic heart disease and other diseases of the circulatory system; J98.11 Atelectasis
CPT/HCPCS: 36415-UA; 71010-TC; 71260-TC; 80048-TC; 80053-TC; 80061-TC; 81001-TC; 81025-TC; 82550-TC; 83735-TC; 83880-TC; 84436-TC; 84439-90; 84443-TC; 84484-TC; 85025-TC; 85610-TC; 93005; 93307-TC; 94640; 94760; J0456; J0696; Q9967; Z7610

== ENCOUNTER 2017-03-14 22:02 | Emergency (ER) | payer MEDICAID ==
--- NOTE | 2017-03-14 22:03 | ED Physician Chart ---
Chief Complaint/HPI - Patient Information Date Seen:: 03/14/17 Time Seen:: 22:03 Chief Complaint:: migraine headache History of Present Illness:: 46-year-old female with history of migraine headaches presents with acute, severe, constant, 10 out of 10, nonradiating, migraine headache that started earlier this morning. Has associated nausea vomiting and photophobia. Took [id number] migraine pain medicine but symptoms persist. Denies chest pain , palpitations, acute vision changes, dysuria, gross blood in stool, gross hematuria, abdominal pain, numbness and tingling. Allergies:: Allergies Allergy/AdvReac Type Severity Reaction Status Date / Time No Known Allergies Allergy Verified 12/29/16 21:40 Review of Systems - Review of Systems Other: Complete system review otherwise unremarkable except as noted in history of present illness. Past Medical History - Past Medical History Past Medical History: Asthma/COPD, Dyslipidemia, Other (migraine headaches) Family History: None Social History: Non Smoker, No Alcohol, No Drug Use, , Other Surgical History: None Psychiatricy History: None Medication: Reviewed Family Medical History - Family Member Mother History Unknown: Yes Ethnicity: Living Status: Still Living Hx Family Cancer: Yes Hx Family Coronary Artery Disease: No Hx Family Congestive Heart Failure: No Hx Family Hypertension: Yes Hx Family Stroke: No Hx Family Diabetes: Yes Hx Family Seizures: No Hx Family Dementia: No Hx Family AIDS: No Hx Family HIV: No Hx Family COPD: No Hx Family Hepatitis: No Hx Family Psychiatric Problems: No Hx Family Tuberculosis: No Father History Unknown: Yes Ethnicity: Living Status: Still Living Hx Family Cancer: Yes Hx Family Coronary Artery Disease: No Hx Family Congestive Heart Failure: No Hx Family Hypertension: Yes Hx Family Stroke: No Hx Family Diabetes: Yes Hx Family Seizures: No Hx Family Dementia: No Hx Family AIDS: No Hx Family HIV: No Hx Family COPD: No Hx Family Hepatitis: No Hx Family Psychiatric Problems: No Hx Family Tuberculosis: No Physical Exam - Physical Examination Other:: INITIAL VITAL SIGNS: Reviewed by me GENERAL: Alert and interactive. Moderate distress due to pain HEAD: Head is normocephalic and atraumatic EYES: EOMI. PERRL. No scleral icterus. No conjunctival injection ENT: Moist mucous membranes. NECK: Supple. No masses. Full range of motion RESPIRATORY: No tachypnea. Clear breath sounds bilaterally. No wheezing, rales, or rhonchi CV: Regular rate and rhythm. No murmurs, rubs, or gallops ABDOMEN: Soft, non-distended, non-tender. No guarding. No rebound. No masses. EXTREMITIES: No deformity. No cyanosis. No edema. SKIN: Warm and dry. No obvious rashes. NEUROLOGIC: Alert and oriented. Face is symmetric. Speech is normal. Moves all extremities equally. Motor and sensory distally intact. Labs/Radiology/EKG Results - Lab Results Results: Lab Results 03/14/17 03/14/17 03/14/17 Range/Units 22:10 22:10 22:24 WBC 7.6 (4.8-10.8) Th/cmm RBC 4.21 (3.80-5.10) Mil/cmm Hgb 11.6 L (11.7-15.5) gm/dL Hct 34.7 L (35.0-45.0) % MCV 82.4 (81-100) fl MCH 27.6 (27.0-31.0) pg MCHC Differential 33.5 (28.0-36.0) pg RDW 15.8 (11.5-20.0) % Plt Count 143 L D (150-400) Th/cmm MPV 10.5 fl Neutrophils % 62.3 (40.0-80.0) % Lymphocytes % 26.6 (20.0-50.0) % Monocytes % 5.9 (2.0-10.0) % Eosinophils % 4.3 (0.0-5.0) % Basophils % 0.9 (0.0-2.0) % Sodium (136-145) mEq/L Potassium (3.5-5.1) mEq/L Chloride (98-107) mEq/L Carbon Dioxide (21.0-31.0) mEq/L Anion Gap (7.0-16.0) BUN (7-25) mg/dL Creatinine (0.6-1.2) mg/dL Est GFR ( Amer) (>90) ml/min Est GFR (Non-Af Amer) ml/min BUN/Creatinine Ratio Glucose (70-105) mg/dL Calcium (8.6-10.3) mg/dL Total Bilirubin (0.3-1.0) mg/dL AST (13-39) U/L ALT (7-52) U/L Alkaline Phosphatase (34-104) U/L Total Protein (6.0-8.3) gm/dL Albumin (3.7-5.3) gm/dL Globulin gm/dL Albumin/Globulin Ratio (1.0-1.8) Amylase (29-103) U/L Lipase (11-82) U/L Urine Source CLEAN C Urine Color YELLOW Urine Clarity CLEAR (CLEAR) Urine pH 6.0 Ur Specific [place] 1.030 (1.005-1.030) Urine Protein 30 H (NEGATIVE) mg/dL Urine Glucose (UA) NEGATIVE (NEGATIVE) mg/dL Urine Ketones NEGATIVE (NEGATIVE) mg/dL Urine Blood MODERATE H (NEGATIVE) Urine Nitrate NEGATIVE (NEGATIVE) Urine Bilirubin NEGATIVE (NEGATIVE) Urine Urobilinogen 0.2 (0.2 - 1.0) E.U./dL Ur Leukocyte Esterase NEGATIVE (NEGATIVE) Urine RBC 25-50 H (0-5) /hpf Urine WBC NONE SEEN (0-5) /hpf Ur Epithelial Cells NONE SEEN (FEW) /lpf Urine Bacteria NONE SEEN (NONE SEEN) /hpf Urine Test NEGATIVE 03/14/17 Range/Units 22:24 WBC (4.8-10.8) Th/cmm RBC (3.80-5.10) Mil/cmm Hgb (11.7-15.5) gm/dL Hct (35.0-45.0) % MCV (81-100) fl MCH (27.0-31.0) pg MCHC Differential (28.0-36.0) pg RDW (11.5-20.0) % Plt Count (150-400) Th/cmm MPV fl Neutrophils % (40.0-80.0) % Lymphocytes % (20.0-50.0) % Monocytes % (2.0-10.0) % Eosinophils % (0.0-5.0) % Basophils % (0.0-2.0) % Sodium 138 (136-145) mEq/L Potassium 3.6 (3.5-5.1) mEq/L Chloride 110 H (98-107) mEq/L Carbon Dioxide 23.4 (21.0-31.0) mEq/L Anion Gap 8.2 (7.0-16.0) BUN 15 (7-25) mg/dL Creatinine 0.6 (0.6-1.2) mg/dL Est GFR ( Amer) > 60.0 (>90) ml/min Est GFR (Non-Af Amer) > 60.0 ml/min BUN/Creatinine Ratio 25.0 Glucose 116 H (70-105) mg/dL Calcium 9.0 (8.6-10.3) mg/dL Total Bilirubin 0.2 L (0.3-1.0) mg/dL AST 19 (13-39) U/L ALT 17 (7-52) U/L Alkaline Phosphatase 61 (34-104) U/L Total Protein 6.9 (6.0-8.3) gm/dL Albumin 3.8 (3.7-5.3) gm/dL Globulin 3.1 gm/dL Albumin/Globulin Ratio 1.2 (1.0-1.8) Amylase 88 (29-103) U/L Lipase 40 (11-82) U/L Urine Source Urine Color Urine Clarity (CLEAR) Urine pH Ur Specific [place] (1.005-1.030) Urine Protein (NEGATIVE) mg/dL Urine Glucose (UA) (NEGATIVE) mg/dL Urine Ketones (NEGATIVE) mg/dL Urine Blood (NEGATIVE) Urine Nitrate (NEGATIVE) Urine Bilirubin (NEGATIVE) Urine Urobilinogen (0.2 - 1.0) E.U./dL Ur Leukocyte Esterase (NEGATIVE) Urine RBC (0-5) /hpf Urine WBC (0-5) /hpf Ur Epithelial Cells (FEW) /lpf Urine Bacteria (NONE SEEN) /hpf Urine Test ED Septic Shock - . Is Septic Shock (SBP<90, OR Lactate>4 mmol\L) present?: No Reassessment (Disposition) - Reassessment Reassessment:: 46-year-old female history of migraine headaches presents with acute, severe migraine headache. Associated photophobia and nausea and vomiting. Received IV Compazine, Toradol, Decadron, Benadryl, normal saline. Symptoms resolved. Reviewed all lab findings with patient. Recommend follow up PCP 1-2 days. Return to ER precautions given. Patient understands reasonable plan. Reassessment Condition:: Improved - Diagnosis Diagnosis:: Acute, intractable, migraine headache, with photophobia - Aftercare/Follow up Instructions Aftercare/Follow-Up Instructions:: Counseled pt regarding lab results/diagnosis & need follow up, Refer to Discharge Instructions - Patient Disposition Discharge/Transfer:: Home Time:: 23:20 Condition at Disposition:: Improved ED Discharge Plan - Patient Disposition Instructions: Migraine Headache
[2017-03-14] MEDS ORDERED: Sodium Chloride 0.9% 1,000 ML IV ONE ×2 (22:04→22:16)
[2017-03-14] MEDS ORDERED: Prochlorperazine 5 mg/mL 2mL Vial IVP STA (22:05)
[2017-03-14] MEDS ORDERED: Prochlorperazine 5 mg/mL 2mL Vial ONE (22:22)
[2017-03-14 22:34] LABS: % BASOPHILS 0.9 % (0.0-2.0); % EOSINOPHILS 4.3 % (0.0-5.0); % LYMPHOCYTES 26.6 % (20.0-50.0); % MONOCYTES 5.9 % (2.0-10.0); % NEUTROPHILS 62.3 % (40.0-80.0); HEMATOCRIT 34.7 % (35.0-45.0); HEMOGLOBIN 11.6 gm/dL (11.7-15.5); MEAN CELL VOLUME 82.4 fl (81-100); MEAN CORPUSCULAR HEMOGLOBIN 27.6 pg (27.0-31.0); MEAN CORPUSCULAR HGB CONC 33.5 pg (28.0-36.0); MEAN PLATELET VOLUME 10.5 fl; NEUTROPHILE ABSOLUTE 4.8 Th/cmm (1.8-8.0); RED BLOOD COUNT 4.21 Mil/cmm (3.80-5.10); RED CELL DISTRIBUTION WIDTH 15.8 % (11.5-20.0); WHITE BLOOD COUNT 7.6 Th/cmm (4.8-10.8)
[2017-03-14 22:47] LABS: ALB/GLOB RATIO 1.2 (1.0-1.8); ALKALINE PHOSPHATASE 61 U/L (34-104); AMYLASE SERUM 88 U/L (29-103); ANION GAP 8.2 (7.0-16.0); BILIRUBIN,TOTAL 0.2 mg/dL (0.3-1.0); BUN - UREA NITROGEN 15 mg/dL (7-25); CARBON DIOXIDE 23.4 mEq/L (21.0-31.0); CHLORIDE 110 mEq/L (98-107); CREATININE - SERUM 0.6 mg/dL (0.6-1.2); GLUCOSE 116 mg/dL (70-105); LIPASE 40 U/L (11-82); POTASSIUM SERUM 3.6 mEq/L (3.5-5.1); SGOT 19 U/L (13-39); SGPT/ALT 17 U/L (7-52); SODIUM SERUM 138 mEq/L (136-145)
[2017-03-14 22:49] LABS: PLATELET COUNT 143 Th/cmm (150-400)
[2017-03-14 22:51] LABS: URINE BILIRUBIN NEGATIVE (NEGATIVE); URINE BLOOD MODERATE (NEGATIVE); URINE COLOR YELLOW; URINE GLUCOSE (UA) NEGATIVE (NEGATIVE); URINE KETONE NEGATIVE (NEGATIVE); URINE PROTEIN 30 mg/dL (NEGATIVE); URINE UROBILINOGEN 0.2 E.U./dL (0.2 - 1.0)
[2017-03-14 22:52] LABS: URINE BACTERIA NONE SEEN /hpf (NONE SEEN); URINE EPITHELIAL CELLS NONE SEEN /lpf (FEW); URINE RBC 25-50 /hpf (0-5); URINE WBC NONE SEEN /hpf (0-5)
== END 2017-03-14 23:45 | disposition home or self-care (01) ==
LOC: ER 22:02
DX: G43.909 Migraine, unspecified, not intractable, without status migrainosus (principal); E78.5 Hyperlipidemia, unspecified
CPT/HCPCS: 99284; 96374; 96375; 36415; 85025; 81001; 82150; 81025; 83690; 80053; J1885; J0780; J1200; J7030; Z7502

== ENCOUNTER 2017-09-20 13:20 | Emergency (ER) | payer MEDICAID ==
--- NOTE | 2017-09-20 13:29 | ED Physician Chart ---
ED Chief Complaint/HPI - Patient Information Date Seen:: 09/20/17 Time Seen:: 13:24 Chief Complaint:: Left hip pain for 3 days. History of Present Illness:: Brought in by private auto and walked in the ER for the above reason. Pt is Nigerian speaking.Interpretation is provided by her per pt's request. Pt denies any fall or injury. Pt remains ambulatory except L hip pain can be precipitated and aggravated with walking. No weakness or numbness. Pt denies use of any analgesic today. Allergies:: Allergies Allergy/AdvReac Type Severity Reaction Status Date / Time No Known Allergies Allergy Verified 03/14/17 22:04 Vitals:: see Nurse Note. 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 , p. 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 Surgical History: other (tual ligation 16 y/a.) Psychiatricy History: None Medication: Reviewed Family Medical History - Family Member Mother History Unknown: Yes Ethnicity: Living Status: Still Living Hx Family Cancer: Yes Hx Family Coronary Artery Disease: No Hx Family Congestive Heart Failure: No Hx Family Hypertension: Yes Hx Family Stroke: No Hx Family Diabetes: Yes Hx Family Seizures: No Hx Family Dementia: No Hx Family AIDS: No Hx Family HIV: No Hx Family COPD: No Hx Family Hepatitis: No Hx Family Psychiatric Problems: No Hx Family Tuberculosis: No Father History Unknown: Yes Ethnicity: Living Status: Still Living Hx Family Cancer: Yes Hx Family Coronary Artery Disease: No Hx Family Congestive Heart Failure: No Hx Family Hypertension: Yes Hx Family Stroke: No Hx Family Diabetes: Yes Hx Family Seizures: No Hx Family Dementia: No Hx Family AIDS: No Hx Family HIV: No Hx Family COPD: No Hx Family Hepatitis: No Hx Family Psychiatric Problems: No Hx Family Tuberculosis: No ED Physical Exam - Physical Examination General/Constitutional: Awake, Well-developed, well-nourished, Alert, No distress, GCS 15, Non-toxic appearing, Ambulatory Other Gen/Cons comments:: Breathes comfortably, speaks clearly, interacts normally, and ambulates without problems. Head: Atraumatic Eyes: Lids, conjuctiva normal, PERRL, EOMI Skin: Nl inspection, No rash, No skin lesions, No ecchymosis, Well hydrated, No lymphadenopathy ENMT: External ears, nose nl, Nasal exam nl, Oropharynx nl Neck: Nontender, Full ROM w/o pain, No nuchal rigidity, No mass, No stridor Respiratory: Nl effort/Exclusion, Clear to Auscultation, No Wheeze/Rhonchi/Rales Cardio Vascular: RRR, No murmur, gallop, rubs GI: No tenderness/rebounding/guarding, No organomegaly, Normal BS's, Nondistended, No mass/bruits Other GI comments:: Abdomen is obese but soft. Other Extremities comments:: LLE: Tenderness to palpation at lateral aspect of L hip. No gross deformity, erythema, swelling, crepitus or open wound. Good ROM. No detectable motor/ sensory/vascular deficit. No distal pulse. Neuro/Psych: Alert/oriented (oriented x 3), Judgement/insight normal, Mood normal, Normal gait, No focal deficits ED Labs/Radiology/EKG Results - Lab Results Results: L hip X-ray: Based on my interpretation, mild degenerative changes noticed. No acute fx or subluxation. Official report is pending. Laboratory Results - last 24 hr 09/20/17 13:54 POC Ur Test Negative ED Septic Shock - . Is Septic Shock (SBP<90, OR Lactate>4 mmol\L) present?: No ED Reassessment (Disposition) - Reassessment Reassessment:: 1410 Pt feels much better and can ambulate without difficulty. L hip X-ray just became available. Radiological findings have been reviewed with pt. Pt requests to go home now and does not want further observation/management in hospital. Aftercare instructions have been given. Reassessment Condition:: Improved - Diagnosis Diagnosis:: L hip pain c/w DJD. Stable and improved. - Aftercare/Follow up Instructions Aftercare/Follow-Up Instructions:: Refer to Discharge Instructions Notes:: Avoid excessive wt bearing activities on L hip. May take Tylenol 500 mg tab one tab po q6h prn pain. F/U with Dr. Gordillo or PCP of pt's choice in 1-2 days for recheck. Return to ER immediately if condition worsens or if any further questions/problems. Medication Prescribed:: None - Patient Disposition Discharge/Transfer:: Home Time:: 16:15 Condition at Disposition:: Stable, Improved
--- NOTE | 2017-09-21 08:23 | Diagnostic Imaging Report ---
Exam: Left hip joint. HISTORY: Pain. Findings: Multiple views of left hip joint reviewed. The study demonstrates no evidence of fracture dislocation. The pelvis is intact. IMPRESSION: Unremarkable examination of left hip joint.
== END 2017-09-20 14:45 | disposition home or self-care (01) ==
LOC: ER 13:20
DX: M19.90 Unspecified osteoarthritis, unspecified site (principal)
CPT/HCPCS: 99284; 96372; 73502; 81025; J1885; 73501; Z7502

== ENCOUNTER 2017-12-04 09:46 | Emergency (ER) | payer MEDICAID ==
--- NOTE | 2017-12-04 10:23 | ED Physician Chart ---
ED Chief Complaint/HPI - Patient Information Date Seen:: 12/04/17 Time Seen:: 10:19 Chief Complaint:: Chest pain and cough History of Present Illness:: 47 yo female had chest pain and cough productive of white sputum for 2 weeks. Patient felt chest pressure and SOB. She denied fever. Allergies:: Allergies Allergy/AdvReac Type Severity Reaction Status Date / Time No Known Allergies Allergy Verified 03/14/17 22:04 Vitals:: Vital Signs - 8 hr 12/04/17 10:08 Temp 98.6 F HR 95 RR 17 BP 120/75 O2 Sat % 96 ED Review of Systems - Review of Systems General/Constitutional: No fever Skin: Skin lesions Head: No headache Eyes: No pain ENT: Sore throat Neck: No neck pain Cardio Vascular: Chest pain, No edema Pulmonary: SOB GI: Nausea, Vomiting Musculoskeletal: Muscle pain ED Past Medical History - Past Medical History Past Medical History: DM, Asthma/COPD, Thyroid disorder (hypothyroidism) Social History: Non Smoker, No Alcohol, No Drug Use Surgical History: None Family Medical History - Family Member Mother History Unknown: Yes Ethnicity: Living Status: Still Living Hx Family Cancer: Yes Hx Family Coronary Artery Disease: No Hx Family Congestive Heart Failure: No Hx Family Hypertension: Yes Hx Family Stroke: No Hx Family Diabetes: Yes Hx Family Seizures: No Hx Family Dementia: No Hx Family AIDS: No Hx Family HIV: No Hx Family COPD: No Hx Family Hepatitis: No Hx Family Psychiatric Problems: No Hx Family Tuberculosis: No Father History Unknown: Yes Ethnicity: Living Status: Still Living Hx Family Cancer: Yes Hx Family Coronary Artery Disease: No Hx Family Congestive Heart Failure: No Hx Family Hypertension: Yes Hx Family Stroke: No Hx Family Diabetes: Yes Hx Family Seizures: No Hx Family Dementia: No Hx Family AIDS: No Hx Family HIV: No Hx Family COPD: No Hx Family Hepatitis: No Hx Family Psychiatric Problems: No Hx Family Tuberculosis: No ED Physical Exam - Physical Examination General/Constitutional: Awake, Alert Head: Atraumatic Eyes: PERRL Other Skin comments:: a mole on mid chest Neck: No nuchal rigidity Respiratory: No Wheeze/Rhonchi/Rales Cardio Vascular: RRR, No murmur, gallop, rubs, NL S1 S2 GI: No tenderness/rebounding/guarding Extremities: normal strength in all extremities, No edema Neuro/Psych: No focal deficits ED Labs/Radiology/EKG Results - Lab Results Results: Laboratory Tests 12/04/17 10:03 POC Ur Test Negative - Radiology Results Results: CXR: no consolidation - EKG Interpretations EKG Time:: 10:43 Rate & Rhythm: sinus rhythm ED Assessment - Assessment General Assessment: Bronchitis Dehydration Hypokalemia Anemia Costochondritis Assessment/Comments:: CBC, CMP Trop I, BNP DuoNeb NS 1L IV bolus KCL 20mEq PO x 1 Naproxen Toradol D/c home F/u PCP or return to ER if symptoms worsen ED Septic Shock - . Is Septic Shock (SBP<90, OR Lactate>4 mmol\L) present?: No - <6hrs of presentation: Vital Signs: Vital Signs - 8 hr 12/04/17 10:08 Temp 98.6 F HR 95 RR 17 BP 120/75 O2 Sat % 96 ED Reassessment (Disposition) - Reassessment Reassessment Condition:: Improved - Patient Disposition Discharge/Transfer:: Home ED Discharge Plan - Patient Disposition Admit/Discharge/Transfer: PT DISCHARGED HOME Condition at Disposition: Improved Prescriptions: Naproxen [Naprosyn*] 250 mg PO Q12H PRN #14 tab PRN Reason: Pain (Moderate) Instructions: Costochondritis, [id number], Upper Respiratory Infection, Adult , [id number]
[2017-12-04 10:49] LABS: % BASOPHILS 0.4 % (0.0-2.0); % EOSINOPHILS 3.5 % (0.0-5.0); % LYMPHOCYTES 32.4 % (20.0-50.0); % MONOCYTES 7.9 % (2.0-10.0); % NEUTROPHILS 55.8 % (40.0-80.0); EOSINOPHILE ABSOLUTE 0.3 Th/cmm (0.1-0.4); HEMATOCRIT 34.2 % (41.0-60); HEMOGLOBIN 11.4 gm/dL (12-16); MEAN CELL VOLUME 85.4 fl (81-100); MEAN CORPUSCULAR HEMOGLOBIN 28.5 pg (27.0-31.0); MEAN CORPUSCULAR HGB CONC 33.4 pg (28.0-36.0); MEAN PLATELET VOLUME 9.9 fl; MONOCYTE ABSOLUTE 0.7 Th/cmm (0.3-1.0); NEUTROPHILE ABSOLUTE 5.2 Th/cmm (1.8-8.0); RED CELL DISTRIBUTION WIDTH 13.9 % (11.5-20.0)
[2017-12-04 10:50] LABS: PLATELET COUNT 177 Th/cmm (150-400); WHITE BLOOD COUNT 9.2 Th/cmm (4.8-10.8)
[2017-12-04 10:51] LABS: URINE MICROSCOPIC INDICATED? YES; URINE SOURCE RANDOM
[2017-12-04 11:04] LABS: ALB/GLOB RATIO 1.3 (1.0-1.8); ALBUMIN 3.9 gm/dL (3.7-5.3); ALKALINE PHOSPHATASE 62 U/L (34-104); ANION GAP 9.5 (7.0-16.0); BILIRUBIN,TOTAL 0.2 mg/dL (0.3-1.0); BUN - UREA NITROGEN 13 mg/dL (7-25); CALCIUM SERUM 9.5 mg/dL (8.6-10.3); CARBON DIOXIDE 26.8 mEq/L (21.0-31.0); CHLORIDE 105 mEq/L (98-107); CHOLESTEROL 170 mg/dL (<200); CREATININE - SERUM 0.6 mg/dL (0.6-1.2); GFR AFRICAN-AMERICAN > 60.0 ml/min (>90); GFR NON AFRICAN-AMERICAN > 60.0 ml/min; GLUCOSE 109 mg/dL (70-105); HDL -HIGH DENSITY LIPOPROTEIN 55 mg/dL (23-92); POTASSIUM SERUM 3.3 mEq/L (3.5-5.1); SGOT 15 U/L (13-39); SGPT/ALT 12 U/L (7-52); SODIUM SERUM 138 mEq/L (136-145); TRIGLYCERIDES 153 mg/dL (<150)
[2017-12-04 11:11] LABS: URINE BILIRUBIN NEGATIVE (NEGATIVE); URINE BLOOD NEGATIVE (NEGATIVE); URINE GLUCOSE (UA) NEGATIVE (NEGATIVE); URINE KETONE NEGATIVE (NEGATIVE); URINE LEUKOCYTE ESTERASE NEGATIVE (NEGATIVE); URINE NITRATE NEGATIVE (NEGATIVE); URINE PROTEIN NEGATIVE (NEGATIVE); URINE UROBILINOGEN 0.2 E.U./dL (0.2 - 1.0)
[2017-12-04 11:17] LABS: URINE BACTERIA OCCASIONAL /hpf (NONE SEEN); URINE CLARITY CLEAR (CLEAR); URINE COLOR PALE YELLOW; URINE EPITHELIAL CELLS FEW /lpf (FEW); URINE RBC NONE SEEN /hpf (0-5); URINE WBC 0-2 /hpf (0-5)
[2017-12-04] MEDS ORDERED: Sodium Chloride 0.9% 1,000 ML IV ONE (11:30)
[2017-12-04] MEDS ORDERED: Albuterol/Ipratropium Neb 3 ML AERS HHN ONE ×2 (11:31→11:52)
--- NOTE | 2017-12-04 11:31 | Diagnostic Imaging Report ---
Portable chest x-ray History: Cough Allowing for portable technique the heart size is normal. No focal pulmonary parenchymal processes. No hilar or mediastinal abnormalities. Impression: No acute abnormalities.
[2017-12-04] MEDS ORDERED: Potassium Chloride 20 mEq ER Tab PO ONE ×2 (11:32→11:38)
== END 2017-12-04 13:20 | disposition home or self-care (01) ==
LOC: ER 09:46
DX: R07.9 Chest pain, unspecified (principal)
CPT/HCPCS: 99285; 96372; 94640; 93005; 71045; 84484; 83880; 36415; 85025; 81001; 81025 ×2; 80053; 80061; J1885; J7030

== ENCOUNTER 2018-06-04 09:46 | Inpatient (IN) | payer MEDICAID ==
[2018-06-04] MEDS ORDERED: Albuterol/Ipratropium Neb 3 ML AERS HHN ONE ×2 (10:12)
[2018-06-04 10:35] LABS: BASOPHILE ABSOLUTE 0.1 Th/cumm (0-0.2); EOSINOPHILE ABSOLUTE 0.5 Th/cmm (0.1-0.4); MONOCYTE ABSOLUTE 0.7 Th/cmm (0.3-1.0)
[2018-06-04 10:41] LABS: URINE SOURCE CLEAN C
[2018-06-04 10:44] LABS: URINE BILIRUBIN NEGATIVE (NEGATIVE); URINE BLOOD MODERATE (NEGATIVE); URINE GLUCOSE (UA) NEGATIVE (NEGATIVE); URINE KETONE NEGATIVE (NEGATIVE); URINE LEUKOCYTE ESTERASE TRACE (NEGATIVE); URINE MICROSCOPIC INDICATED? YES; URINE NITRATE NEGATIVE (NEGATIVE); URINE PROTEIN NEGATIVE (NEGATIVE); URINE UROBILINOGEN 0.2 E.U./dL (0.2 - 1.0)
[2018-06-04 10:46] LABS: % BASOPHILS 0.9 % (0.0-2.0); % EOSINOPHILS 4.9 % (0.0-5.0); % LYMPHOCYTES 35.1 % (20.0-50.0); % MONOCYTES 6.5 % (2.0-10.0); % NEUTROPHILS 52.6 % (40.0-80.0); HEMATOCRIT 36.9 % (41.0-60); HEMOGLOBIN 12.6 gm/dL (12-16); LYMPHOCYTE ABSOLUTE 3.7 Th/cmm (1.5-3.0); MEAN CELL VOLUME 85.4 fl (81-100); MEAN CORPUSCULAR HEMOGLOBIN 29.3 pg (27.0-31.0); MEAN CORPUSCULAR HGB CONC 34.3 pg (28.0-36.0); MEAN PLATELET VOLUME 9.4 fl; NEUTROPHILE ABSOLUTE 5.4 Th/cmm (1.8-8.0); PLATELET COUNT 209 Th/cmm (150-400); RED BLOOD COUNT 4.31 Mil/cmm (3.80-5.10); RED CELL DISTRIBUTION WIDTH 17.4 % (11.5-20.0); WHITE BLOOD COUNT 10.4 Th/cmm (4.8-10.8)
[2018-06-04 10:49] LABS: ALB/GLOB RATIO 1.3 (1.0-1.8); ALBUMIN 3.9 gm/dL (3.7-5.3); ALKALINE PHOSPHATASE 60 U/L (34-104); ANION GAP 9.6 (7.0-16.0); BILIRUBIN,TOTAL 0.3 mg/dL (0.3-1.0); BUN - UREA NITROGEN 15 mg/dL (7-25); CALCIUM SERUM 9.3 mg/dL (8.6-10.3); CHLORIDE 106 mEq/L (98-107); CREATININE - SERUM 0.8 mg/dL (0.6-1.2); GFR AFRICAN-AMERICAN > 60.0 ml/min (>90); GFR NON AFRICAN-AMERICAN > 60.0 ml/min; GLUCOSE 100 mg/dL (70-105); MAGNESIUM 2.2 mg/dL (1.9-2.7); PHOSPHOROUS 3.5 mg/dL (2.5-5.0); POTASSIUM SERUM 3.6 mEq/L (3.5-5.1); SGOT 15 U/L (13-39); SGPT/ALT 13 U/L (7-52); SODIUM SERUM 136 mEq/L (136-145)
[2018-06-04 11:02] LABS: URINE CLARITY CLOUDY (CLEAR); URINE COLOR YELLOW; URINE EPITHELIAL CELLS OCCASIONAL /lpf (FEW); URINE WBC 0-2 /hpf (0-5)
[2018-06-04 11:03] LABS: URINE AMORPHOUS SEDIMENT MANY URATES (NONE SEEN); URINE BACTERIA FEW /hpf (NONE SEEN)
[2018-06-04] MEDS ORDERED: cefTRIAXone 1 GM in Sodium Chloride 0.9% 50 ML IV ONE (11:05)
--- NOTE | 2018-06-04 11:15 | Diagnostic Imaging Report ---
CHEST X-RAY: AP view INDICATION: Shortness of breath COMPARISON: Chest x-ray 12/04/[address] of the chest on 02/26/2017. Study was also compared to previous chest x-rays dating back to 01/30/2016 FINDINGS: Persistent increased right basal lung markings are noted. There may be a small right pleural effusion. Heart size is normal. Osseous structures are intact. IMPRESSION: Persistent increased right basal lung markings along the right heart border. This may be due to a prominent pericardiophrenic fat pad when compared to prior examinations. Findings may be chronic, however, superimposed acute process cannot be excluded. Clinical correlation is recommended. Small right effusion suspected.
--- NOTE | 2018-06-04 11:29 | ED Physician Chart ---
ED Chief Complaint/HPI - Patient Information Date Seen:: 06/04/18 Time Seen:: 09:50 Chief Complaint:: shortness of breath and cough History of Present Illness:: shortness of breath and cough. No sputum production. Allergies:: Allergies Allergy/AdvReac Type Severity Reaction Status Date / Time No Known Allergies Allergy Verified 06/04/18 09:58 Vitals:: Vital Signs - 8 hr 06/04/18 06/04/18 06/04/18 09:50 09:55 10:14 Temp 98 F 98.6 F HR 93 101 90 RR 20 18 18 BP 113/66 108/75 O2 Sat % 96 95 97 06/04/18 10:59 Temp 98 F HR 93 RR 24 BP 114/73 O2 Sat % 93 ED Past Medical History - Past Medical History Past Medical History: Asthma/COPD, Other (bleeding fibroids (status post prior surgery)) Family History: Diabetes Melitus, HTN Social History: Non Smoker Family Medical History - Family Member Mother History Unknown: Yes Ethnicity: Living Status: Still Living Hx Family Cancer: Yes Hx Family Coronary Artery Disease: No Hx Family Congestive Heart Failure: No Hx Family Hypertension: Yes Hx Family Stroke: No Hx Family Diabetes: Yes Hx Family Seizures: No Hx Family Dementia: No Hx Family AIDS: No Hx Family HIV: No Hx Family COPD: No Hx Family Hepatitis: No Hx Family Psychiatric Problems: No Hx Family Tuberculosis: No Father History Unknown: Yes Ethnicity: Living Status: Still Living Hx Family Cancer: Yes Hx Family Coronary Artery Disease: No Hx Family Congestive Heart Failure: No Hx Family Hypertension: Yes Hx Family Stroke: No Hx Family Diabetes: Yes Hx Family Seizures: No Hx Family Dementia: No Hx Family AIDS: No Hx Family HIV: No Hx Family COPD: No Hx Family Hepatitis: No Hx Family Psychiatric Problems: No Hx Family Tuberculosis: No ED Physical Exam - Physical Examination General/Constitutional: Awake, Well-developed, well-nourished, Alert, GCS 15, Non-toxic appearing, Ambulatory Other Gen/Cons comments:: mild respiratory distress. Head: Atraumatic Eyes: Lids, conjuctiva normal, PERRL, EOMI Skin: Nl inspection, No rash, No skin lesions, No ecchymosis, Well hydrated, No lymphadenopathy ENMT: External ears, nose nl, Nasal exam nl, Lips, teeth, gums nl Other Respiratory comments:: decreased excursion with diffuse wheeze throughout. Cardio Vascular: No murmur, gallop, rubs, NL S1 S2 Other Cardio Vascular comments:: tachycardia. Extremities: No tenderness or effusion, Full ROM, normal strength in all extremities, No edema, Normal digits & nails Neuro/Psych: Alert/oriented, Normal motor strength, Judgement/insight normal, Mood normal, Normal gait, No focal deficits ED Labs/Radiology/EKG Results - Lab Results Results: Laboratory Tests 06/04/18 06/04/18 06/04/18 10:24 10:24 10:24 WBC 10.4 RBC 4.31 Hgb 12.6 Hct 36.9 L MCV 85.4 MCH 29.3 MCHC Differential 34.3 RDW 17.4 Plt Count 209 MPV 9.4 Neutrophils % 52.6 Lymphocytes % 35.1 Monocytes % 6.5 Eosinophils % 4.9 Basophils % 0.9 D-Dimer Sodium 136 Potassium 3.6 Chloride 106 Carbon Dioxide 24.0 Anion Gap 9.6 BUN 15 Creatinine 0.8 Est GFR ( Amer) > 60.0 Est GFR (Non-Af Amer) > 60.0 BUN/Creatinine Ratio 18.8 Glucose 100 Calcium 9.3 Phosphorus 3.5 Magnesium 2.2 Total Bilirubin 0.3 AST 15 ALT 13 Alkaline Phosphatase 60 Troponin I 0.01 Total Protein 7.0 Albumin 3.9 Globulin 3.1 Albumin/Globulin Ratio 1.3 Urine Source Urine Color Urine Clarity Urine pH Ur Specific [place] Urine Protein Urine Glucose (UA) Urine Ketones Urine Blood Urine Nitrate Urine Bilirubin Urine Urobilinogen Ur Leukocyte Esterase Urine RBC Urine WBC Ur Epithelial Cells Amorphous Sediment Urine Bacteria Urine Test 06/04/18 06/04/18 06/04/18 10:24 10:25 10:25 WBC RBC Hgb Hct MCV MCH MCHC Differential RDW Plt Count MPV Neutrophils % Lymphocytes % Monocytes % Eosinophils % Basophils % D-Dimer 150 Sodium Potassium Chloride Carbon Dioxide Anion Gap BUN Creatinine Est GFR ( Amer) Est GFR (Non-Af Amer) BUN/Creatinine Ratio Glucose Calcium Phosphorus Magnesium Total Bilirubin AST ALT Alkaline Phosphatase Troponin I Total Protein Albumin Globulin Albumin/Globulin Ratio Urine Source CLEAN C Urine Color YELLOW Urine Clarity CLOUDY H Urine pH 7.0 Ur Specific [place] 1.010 Urine Protein NEGATIVE Urine Glucose (UA) NEGATIVE Urine Ketones NEGATIVE Urine Blood MODERATE H Urine Nitrate NEGATIVE Urine Bilirubin NEGATIVE Urine Urobilinogen 0.2 Ur Leukocyte Esterase TRACE H Urine RBC 5-10 H Urine WBC 0-2 Ur Epithelial Cells OCCASIONAL Amorphous Sediment MANY URATES Urine Bacteria FEW Urine Test NEGATIVE ED Assessment - Assessment General Assessment: spoke to Dr. Jc about admitting this patient. He will admit her to med surg. We have already drawn a blood culture and start IV Rocephin. ED Septic Shock - . Is Septic Shock (SBP<90, OR Lactate>4 mmol\L) present?: No - <6hrs of presentation: Vital Signs: Vital Signs - 8 hr 06/04/18 06/04/18 06/04/18 09:50 09:55 10:14 Temp 98 F 98.6 F HR 93 101 90 RR 20 18 18 BP 113/66 108/75 O2 Sat % 96 95 97 06/04/18 10:59 Temp 98 F HR 93 RR 24 BP 114/73 O2 Sat % 93 ED Reassessment (Disposition) - Reassessment Reassessment Condition:: Improved - Diagnosis Diagnosis:: Respiratory distress Right lower lobe pneumonia Asthma exacerbation Uterine fibroids - Patient Disposition Discharge/Transfer:: Acute Care w/in this hosp Admitted to:: Med/Surg
[2018-06-04] MEDS ORDERED: Albuterol/Ipratropium Neb 3 ML AERS HHN SCH ×2 (12:53→13:45)
[2018-06-04] MEDS ORDERED: Albuterol/Ipratropium Neb 3 ML AERS HHN PRN (13:40)
[2018-06-04] MEDS ORDERED: Pantoprazole 40 mg EC Tab PO SCH (14:15)
[2018-06-04] MEDS ORDERED: Pantoprazole 40 mg/Packet PO SCH (14:15)
[2018-06-04] MEDS: Albuterol/Ipratropium Neb 3 ML AERS HHN SCH ×2 (14:18→18:57)
[2018-06-04] MEDS: Azithromycin 500 MG in Sodium Chloride 0.9% 250 ML IV SCH (15:15)
[2018-06-04] MEDS: methylPREDNISolone SS 40 mg Vial IVP SCH ×2 (15:16→20:58)
[2018-06-04] MEDS: Budesonide 0.5 Mg/2 mL Ud HHN SCH (19:07)
--- NOTE | 2018-06-04 21:15 | Progress Notes ---
DATE: 06/04/2018 PULMONARY AND CRITICAL CARE CONSULTATION REASON FOR CONSULTATION: Shortness of breath. CONSULT NOTE: This is a 47-year-old female, who has had history of chronic bronchial asthma for many years, almost 10-15 years. The patient started having coughing on and off for the last 1 week with some wheezing and shortness of breath; though, denied of any chest pain, but chest tightness, no much sputum production, some nasal congestion, no swelling of the legs, no hemoptysis, and no fever or chills. As the patient's symptoms persisted, the patient came to the Emergency Room and routine workup showed possible pneumonia with acute exacerbation with hypoxemia; hence, I was asked to see this patient. The patient had on and off problems with breathing. She takes albuterol from her primary care physician; otherwise, unremarkable. PAST MEDICAL HISTORY: 1. Diabetes mellitus. 2. Suspect sleep apnea syndrome. ALLERGIES: NONE, THAT SHE CAN TELL AEROALLERGENS. SMOKING HISTORY: Nil. FAMILY HISTORY: Strongly positive for cardiovascular disease including diabetes. Positive for bronchial asthma, 4 children has bronchial asthma. PHYSICAL EXAMINATION: GENERAL: This is a middle-aged looking female, awake, alert, oriented, not in any acute distress. The patient is currently down flat in the bed. VITAL SIGNS: The patient's recorded vitals: Temperature is 98.6, saturation is 93 on 4 liters per minute, and blood pressure is 114/73. HEENT: Examination of the head is essentially unremarkable. Pupils appear to be equal and reacting to light. Conjunctivae are slightly pallor. Oral cavity shows small oropharyngeal opening with no separation of pharyngeal fossa. NECK: Short. No palpable node in the neck could be palpated. CHEST: Findings shows scattered wheezing with diminished air entry. HEART: Distant. ABDOMEN: Soft, nontender. EXTREMITIES: Shows no peripheral edema. IMAGING DATA: The patient's chest x-ray, poor quality, questionable haziness at the bases. LABORATORY DATA: White count is 10.4 and hemoglobin is 12.6. The patient's electrolytes are okay with sugar of 100. Urine shows cloudy urine with moderate blood with trace of positive leukocyte esterase and bacteria few. IMPRESSION: 1. The patient has acute exacerbation of chronic bronchial asthma, precipitating factor is not clear, most likely viral. 2. Diabetes mellitus. Suspect sleep apnea syndrome with mild degree of morbid obesity. PLANS AND SUGGESTIONS: We will go ahead and continue current treatment. We will add inhaled steroid to current treatment. We will get a sputum studies available. We would add inhaled steroid. We will watch sugar very closely. We will repeat PA and lateral and also need for oxygen tomorrow and go from there. JOB# [id number]
--- NOTE | 2018-06-04 21:45 | History & Physical ---
ADMIT DATE: 06/04/2018 PATIENT IDENTIFICATION: A 47-year-old female. CHIEF COMPLAINT: Shortness of breath and cough. HISTORY OF PRESENT ILLNESS: A 47-year-old [place] female who has visited this hospital since the last 2 years, last visit here in month of November, presented this morning for evaluation of cough, congestion, and shortness of breath. The patient was worked up in the Emergency Room and noted to have small right effusion with right-sided pneumonia. The patient is being admitted because the patient was also noted to have hypoxia. PAST MEDICAL HISTORY: Remarkable for hypothyroidism and obesity. MEDICATIONS AT HOME: She was taking naproxen, albuterol inhaler. ALLERGIES: The patient is not allergic to medications. SOCIAL HISTORY: She lives in [place] and she has a history of smoking cigarette, but no alcohol or drug use. FAMILY MEDICAL HISTORY: Remarkable for diabetes. REVIEW OF SYSTEMS: The patient has a cough, congestion, and intermittent chest pain. Denies any abdominal pain. Denies any nausea, vomiting, diarrhea, dysuria, hematuria, hematochezia, or melena. No history of any seizure or syncopal episode. PHYSICAL EXAMINATION: GENERAL: The patient is alert, awake, lying in the bed. VITAL SIGNS: Temperature 98.9, pulse is 93, respiratory rate 20, and blood pressure is 122/69. HEENT: Normocephalic, atraumatic. Extraocular muscles are intact. Tongue was pink and coated. Oropharynx congested. Nasal mucosa congested. NECK: Supple, no JVD. No hepatojugular reflex. No lymphadenopathy, thyromegaly, or carotid bruit. HEART: Both heart sounds are regular. No S3, no S4, no murmur. CHEST: Lung equal in expansion with expiratory wheezing noted. ABDOMEN: Soft. No guarding, rigidity. Bowel sounds present. No palpable mass. EXTREMITIES: No edema, no cyanosis. NEUROLOGIC: Nonfocal. AVAILABLE DIAGNOSTIC DATA: Has been reviewed. CLINICAL IMPRESSION: 1. Right lower lobe pneumonia. 2. Asthma exacerbation. 3. Obesity. 4. Hypothyroidism by history. PLAN: [facility], provide oxygen. 2. Nebulizer treatment. 3. IV steroids. 4. IV antibiotic. 5. Pulmonary consult. 6. General nursing care. 7. Follow lab. 8. Follow consult recommendation. 9. Care plan reviewed and discussed. JOB# [id number]
[2018-06-05] MEDS: methylPREDNISolone SS 40 mg Vial IVP SCH ×2 (05:30→12:49)
[2018-06-05 06:57] LABS: % BASOPHILS 0.3 % (0.0-2.0); % EOSINOPHILS 0.1 % (0.0-5.0); % LYMPHOCYTES 12.5 % (20.0-50.0); % MONOCYTES 2.3 % (2.0-10.0); % NEUTROPHILS 84.8 % (40.0-80.0); HEMATOCRIT 36.1 % (41.0-60); LYMPHOCYTE ABSOLUTE 1.8 Th/cmm (1.5-3.0); MEAN CELL VOLUME 85.9 fl (81-100); MEAN CORPUSCULAR HEMOGLOBIN 28.5 pg (27.0-31.0); MEAN CORPUSCULAR HGB CONC 33.1 pg (28.0-36.0); MEAN PLATELET VOLUME 9.6 fl; MONOCYTE ABSOLUTE 0.3 Th/cmm (0.3-1.0); PLATELET COUNT 210 Th/cmm (150-400); RED CELL DISTRIBUTION WIDTH 17.3 % (11.5-20.0)
[2018-06-05] MEDS: Albuterol/Ipratropium Neb 3 ML AERS HHN SCH ×3 (06:58→14:45)
[2018-06-05] MEDS: Budesonide 0.5 Mg/2 mL Ud HHN SCH (06:59)
[2018-06-05 07:04] LABS: WHITE BLOOD COUNT 14.1 Th/cmm (4.8-10.8)
--- NOTE | 2018-06-05 09:08 | Diagnostic Imaging Report ---
Portable chest x-ray Time: 0 751 History: Shortness of breath Allowing for portable technique the heart size is normal. No focal pulmonary parenchymal processes. No hilar or mediastinal abnormalities. Impression: No acute abnormalities.
[2018-06-05 09:29] LABS: pH 7.43 (7.35-7.45)
[2018-06-05 09:30] LABS: ALLEN TEST Y
[2018-06-05] MEDS ORDERED: Albuterol/Ipratropium Neb 3 ML AERS HHN PRN (14:45)
[2018-06-05] MEDS: Azithromycin 500 MG in Sodium Chloride 0.9% 250 ML IV SCH (15:06)
--- NOTE | 2018-06-05 17:11 | Discharge Summary ---
DATE OF DISCHARGE: 06/05/2018 PRINCIPAL DIAGNOSES: 1. Asthmatic bronchitis with bronchospasm. 2. Acute respiratory insufficiency. 3. Obesity. 4. Leukocytosis secondary to steroid. BRIEF STATEMENT FOR THE REASON FOR ADMISSION: A 47-year-old female presented to Emergency Room for evaluation of cough, congestion, shortness of breath. The patient was referred by ER MD and subsequently admitted to the hospital for further treatment. Please refer to my H and P for further information. HOSPITAL COURSE: The patient was admitted to Med/Surg floor. The patient was given; 1. Oxygen. 2. Steroid. 3. IV antibiotic. 4. Nebulizer treatment. 5. Pulmonary consult. 6. Symptoms management. The patient was seen by Pulmonary and agreed with current treatment plan. Repeat chest x-ray was unremarkable. The patient did improve significantly with the treatment plan. Decision was made that the patient will be discharged. The patient was given prednisone 50 mg daily for 5 days and Zithromax as directed in the form of Z-Kameron. The patient is advised to see her rn circulating in 1 week. The patient was informed if recurrent symptoms, go to Emergency Room. JOB# [id number]
--- NOTE | 2018-06-05 22:57 | Progress Notes ---
DATE: 06/05/2018 DATE OF EVALUATION: 06/05/2018 IDENTIFICATION: A 47-year-old female. The patient is seen and examined. The patient complained of productive cough and shortness of breath. Chest x-ray done, which is unremarkable for any cardiopulmonary disease. The patient is ambulatory. Denies any fever or chills. The patient denies any nausea or vomiting. PHYSICAL EXAMINATION: VITAL SIGNS: Temperature 97.1, pulse 90, respiratory rate 18, blood pressure 108/58, O2 sat is 96%. HEENT: Congested oropharynx. NECK: Supple, no JVD. HEART: Regular. LUNGS: Has expiratory wheezing. ABDOMEN: Soft. EXTREMITIES: No edema. NEUROLOGIC: Nonfocal. IMPRESSION: 1. Asthmatic bronchitis. 2. Respiratory insufficiency. 3. Leukocytosis secondary to steroids. PLAN: Since chest x-ray is normal, the patient's O2 sat is 96%, I will discharge the patient home with p.o. prednisone and Zithromax with outpatient followup by her primary health care nurse. The patient has fully understood about this discharge instruction. JOB# [id number]
--- NOTE | 2018-06-06 00:27 | Progress Notes ---
DATE: 06/05/2018 PULMONARY PROGRESS NOTE PROBLEM LIST: 1. Acute bronchial asthma. 2. Diabetic mellitus. SYMPTOMS: Much better tightness, etc., significantly improved. PHYSICAL EXAMINATION: GENERAL: Lying down comfortably. No respiratory distress on exam. VITAL SIGNS: Temperature is 97.1, blood pressure 108/58, saturation is 96% and on room air. NECK: Veins not visualized. CHEST: Shows occasional wheezing with diminished air entry. HEART: Regular. ABDOMEN: Soft, nontender. IMAGING DATA: X-ray, limited, poor quality, done portable PA and lateral, which was not my request. PLANS AND SUGGESTIONS: We have discussed with the patient's nursing staff, need to have repeat x-ray without any new order and see how she does and go from there. Meantime, we will go ahead and switch her to oral steroids. JOB# [id number]
--- NOTE | 2018-06-06 10:03 | Diagnostic Imaging Report ---
Chest x-ray 2 views HISTORY: Follow-up COMPARISON: 06/04/2018 The overall heart size is normal. No focal pulmonary processes. No hilar or mediastinal abnormalities. IMPRESSION: No acute abnormalities.
== END 2018-06-05 19:30 | disposition home or self-care (01) | DRG 140 ==
LOC: ER 09:46 → MSI 12:25 → TELE 20:22
PROVIDERS: ADMIT Internal Medicine; ATTEND Internal Medicine
DX: J44.0 Chronic obstructive pulmonary disease with (acute) lower respiratory infection (principal); J18.9 Pneumonia, unspecified organism; E66.01 Morbid (severe) obesity due to excess calories; J45.901 Unspecified asthma with (acute) exacerbation; D25.9 Leiomyoma of uterus, unspecified; E03.9 Hypothyroidism, unspecified; R06.89 Other abnormalities of breathing; D72.829 Elevated white blood cell count, unspecified; Z68.34 Body mass index [BMI] 34.0-34.9, adult; T38.0X5A Adverse effect of glucocorticoids and synthetic analogues, initial encounter; Z82.49 Family history of ischemic heart disease and other diseases of the circulatory system; Z83.3 Family history of diabetes mellitus; Y92.89 Other specified places as the place of occurrence of the external cause
CPT/HCPCS: 36415-UA; 71045-TC; 71046-TC; 80053-TC; 81001-TC; 81025-TC; 82803-TC; 83735-TC; 84100-TC; 84484-TC; 85025-TC; 85379-TC; 87086-90; 93005; 94640; 94760; 96375; J0456; J0696; J2920; J2930; Z7610

== ENCOUNTER 2018-11-08 04:48 | Emergency (ER) | payer SELFPAY ==
--- NOTE | 2018-11-08 05:05 | ED Physician Chart ---
ED Chief Complaint/HPI - Patient Information Date Seen:: 11/08/18 Time Seen:: 05:02 Chief Complaint:: lt flank pain History of Present Illness:: 48 yr old female with 4 days hx of lt flank pain no nv dizziness or headache Allergies:: Allergies Allergy/AdvReac Type Severity Reaction Status Date / Time No Known Allergies Allergy Verified 06/04/18 09:58 ED Review of Systems - Review of Systems General/Constitutional: No fever, No chills, No weight loss, No weakness, No diaphoresis, No edema, No loss of appetite Skin: No skin lesions, No rash, No bruising Head: No headache, No light-headedness Eyes: No loss of vision, No pain, No diplopia ENT: No earache, No nasal drainage, No sore throat, No tinnitus Neck: No neck pain, No swelling, No thyromegaly, No stiffness, No mass noted Cardio Vascular: No chest pain, No palpitations, No PND, No orthopnea, No edema Pulmonary: No SOB, No cough, No sputum, No wheezing GI: No nausea, No vomiting, No diarrhea, No pain, No melena, No hematochezia, No constipation, No hematemesis G/U: Other (lt flank pain) Musculoskeletal: No bone or joint pain, No back pain, No muscle pain Endocrine: No polyuria, No polydipsia Psychiatric: No prior psych history, No depression, No anxiety, No suicidal ideation Hematopoietic: No bruising, No lymphadenopathy Allergic/Immuno: No urticaria, No angioedema Neurological: No syncope, No focal symptoms, No weakness, No paresthesia, No headache, No seizure, No dizziness, No confusion, No vertigo ED Past Medical History - Past Medical History Past Medical History: No significant medical hx Surgical History: other ([facility]) Family Medical History - Family Member Mother History Unknown: Yes Ethnicity: Living Status: Still Living Hx Family Cancer: Yes Hx Family Coronary Artery Disease: No Hx Family Congestive Heart Failure: No Hx Family Hypertension: Yes Hx Family Stroke: No Hx Family Diabetes: Yes Hx Family Seizures: No Hx Family Dementia: No Hx Family AIDS: No Hx Family HIV: No Hx Family COPD: No Hx Family Hepatitis: No Hx Family Psychiatric Problems: No Hx Family Tuberculosis: No Father History Unknown: Yes Ethnicity: Living Status: Still Living Hx Family Cancer: Yes Hx Family Coronary Artery Disease: No Hx Family Congestive Heart Failure: No Hx Family Hypertension: Yes Hx Family Stroke: No Hx Family Diabetes: Yes Hx Family Seizures: No Hx Family Dementia: No Hx Family AIDS: No Hx Family HIV: No Hx Family COPD: No Hx Family Hepatitis: No Hx Family Psychiatric Problems: No Hx Family Tuberculosis: No ED Physical Exam - Physical Examination General/Constitutional: Awake, Well-developed, well-nourished, Alert, No distress, GCS 15, Non-toxic appearing, Ambulatory Head: Atraumatic Eyes: Lids, conjuctiva normal, PERRL, EOMI Skin: Nl inspection, No rash, No skin lesions, No ecchymosis, Well hydrated, No lymphadenopathy ENMT: External ears, nose nl, Nasal exam nl, Lips, teeth, gums nl Neck: Nontender, Full ROM w/o pain, No JVD, No nuchal rigidity, No bruit, No mass, No stridor Respiratory: Nl effort/Exclusion, Clear to Auscultation, No Wheeze/Rhonchi/Rales Cardio Vascular: RRR, No murmur, gallop, rubs, NL S1 S2 GI: No tenderness/rebounding/guarding, No organomegaly, No hernia, Normal BS's, Nondistended, No mass/bruits, No McBurney tenderness Other GI comments:: lt flank pain : No CVA tenderness Extremities: No tenderness or effusion, Full ROM, normal strength in all extremities, No edema, Normal digits & nails Neuro/Psych: Alert/oriented, DTR's symmetric, Normal sensory exam, Normal motor strength, Judgement/insight normal, Mood normal, Normal gait, No focal deficits Misc: Normal back, No paraspinal tenderness ED Assessment - Assessment General Assessment: lt flank pain ED Septic Shock - . Is Septic Shock (SBP<90, OR Lactate>4 mmol\L) present?: No ED Reassessment (Disposition) - Reassessment Reassessment:: lt flank pain - Patient Disposition Condition at Disposition:: Stable
[2018-11-08 05:09] LABS: URINE SOURCE CLEAN C
[2018-11-08 05:22] LABS: URINE BILIRUBIN NEGATIVE (NEGATIVE); URINE BLOOD MODERATE (NEGATIVE); URINE GLUCOSE (UA) NEGATIVE (NEGATIVE); URINE KETONE TRACE mg/dL (NEGATIVE); URINE LEUKOCYTE ESTERASE LARGE (NEGATIVE); URINE MICROSCOPIC INDICATED? YES; URINE NITRATE NEGATIVE (NEGATIVE); URINE PROTEIN TRACE mg/dL (NEGATIVE); URINE UROBILINOGEN 0.2 E.U./dL (0.2 - 1.0)
[2018-11-08 05:23] LABS: URINE CLARITY HAZY (CLEAR); URINE COLOR YELLOW
[2018-11-08 05:42] LABS: URINE BACTERIA MODERATE /hpf (NONE SEEN); URINE EPITHELIAL CELLS MODERATE /lpf (FEW); URINE WBC 50-100 /hpf (0-5)
[2018-11-08] MEDS ORDERED: Morphine Sulfate 2 mg/mL 1mL Syr IV STA ×2 (05:52→07:28)
[2018-11-08] MEDS ORDERED: Morphine Sulfate 2 mg/mL 1mL Syr ONE ×2 (06:04→07:32)
[2018-11-08] MEDS ORDERED: Piperacillin Sodium/Tazobact 3.375 gm Vial IV ONE (06:05)
[2018-11-08] MEDS ORDERED: Lactated Ringer 1,000 ML IV ONE (06:06)
[2018-11-08 06:21] LABS: % BASOPHILS 0.2 % (0.0-2.0); % LYMPHOCYTES 15.7 % (20.0-50.0); % MONOCYTES 5.4 % (2.0-10.0); % NEUTROPHILS 76.7 % (40.0-80.0); EOSINOPHILE ABSOLUTE 0.2 Th/cmm (0.1-0.4); HEMATOCRIT 39.8 % (41.0-60); HEMOGLOBIN 13.4 gm/dL (12-16); LYMPHOCYTE ABSOLUTE 1.8 Th/cmm (1.5-3.0); MEAN CELL VOLUME 87.3 fl (81-100); MEAN CORPUSCULAR HEMOGLOBIN 29.3 pg (27.0-31.0); MEAN CORPUSCULAR HGB CONC 33.6 pg (28.0-36.0); MEAN PLATELET VOLUME 10.1 fl; MONOCYTE ABSOLUTE 0.6 Th/cmm (0.3-1.0); PLATELET COUNT 154 Th/cmm (150-400); RED BLOOD COUNT 4.56 Mil/cmm (3.80-5.10); WHITE BLOOD COUNT 11.6 Th/cmm (4.8-10.8)
[2018-11-08 06:25] LABS: ALB/GLOB RATIO 1.4 (1.0-1.8); ALKALINE PHOSPHATASE 52 U/L (34-104); AMYLASE SERUM 90 U/L (29-103); ANION GAP 13.3 (7.0-16.0); BILIRUBIN,TOTAL 0.4 mg/dL (0.3-1.0); BUN - UREA NITROGEN 13 mg/dL (7-25); CALCIUM SERUM 9.3 mg/dL (8.6-10.3); CARBON DIOXIDE 23.1 mEq/L (21.0-31.0); CHLORIDE 105 mEq/L (98-107); CREATININE - SERUM 0.6 mg/dL (0.6-1.2); GFR AFRICAN-AMERICAN > 60.0 ml/min (>90); GFR NON AFRICAN-AMERICAN > 60.0 ml/min; GLUCOSE 88 mg/dL (70-105); LIPASE 28 U/L (11-82); MAGNESIUM 1.9 mg/dL (1.9-2.7); PHOSPHOROUS 3.1 mg/dL (2.5-5.0); POTASSIUM SERUM 3.4 mEq/L (3.5-5.1); SGOT 14 U/L (13-39); SGPT/ALT 12 U/L (7-52); SODIUM SERUM 138 mEq/L (136-145); TOTAL PROTEIN,SERUM 6.9 gm/dL (6.0-8.3)
--- NOTE | 2018-11-08 07:39 | Diagnostic Imaging Report ---
Exam: CT examination abdomen pelvis HISTORY: Left flank pain Total DLP equals 662 CTDI equals 13.7 Findings: Multiple contiguous thin section of the abdomen pelvis obtained from lower thorax to pubic symphysis without administration intravenous or oral contrast material, no prior studies available comparison. The study demonstrates normal aeration of lung parenchyma The liver and spleen are intact. The pancreas is normal. The gallbladder is normal. The kidneys demonstrates a no evidence obstructive uropathy. Left kidney is atrophic. There is evidence for left-sided pelvocaliectasis with a distended left ureter up to mid left ureter level with the small 2 mm calcification in the left ureterovesical junction. Large amount of fecal content in the right colon is noted. The appendix is intact. There is no evidence of diverticular disease of diverticulitis. The uterus is enlarged intrauterine device is noted. There is evidence for a metallic clips in the right side of the uterus most likely due to tubal ligation. Urinary bladder is intact. The bony structures demonstrate no evidence for lytic or blastic changes. IMPRESSION: Atrophic left kidney with the pelvicalyceal distention and prominent left ureter with 2 mm calcification in the left ureterovesical junctions. Hypertrophy of the uterus with intrauterine device in place. Large amount of fecal content in the right colon.
--- NOTE | 2018-11-08 07:40 | Diagnostic Imaging Report ---
Portable chest x-ray Time: 0 624 History: Pneumonia Allowing for portable technique the heart size is normal. No focal pulmonary parenchymal processes. No hilar or mediastinal abnormalities. Impression: No acute abnormalities.
== END 2018-11-08 09:02 | disposition left against medical advice (07) ==
LOC: ER 04:48
DX: N13.2 Hydronephrosis with renal and ureteral calculous obstruction (principal); E86.0 Dehydration; N83.209 Unspecified ovarian cyst, unspecified side
CPT/HCPCS: 99284; 96365; 96375; 96376; 71045; 74176; 36415; 83605; 85025; 87086; 81001; 82150; 83690; 83735; 84100; 80053; 87040; J2270 ×2; J1885; J2543; Z7502